=== PATIENT | male | born 1965 | race Caucasian/White ===

== ENCOUNTER 2017-12-02 03:46 | Inpatient (IN) | payer BC, OTHER ==
--- NOTE | 2017-12-02 04:07 | ED ---
General Adult HPI - General Stated complaint: Leg pain Time Seen by Provider: 12/02/17 04:07 - History of Present Illness Initial comments: A 52-year-old male with no significant past medical history who presents to the emergency department today via EMS for evaluation of possible syncope. Patient notes that he drank a fifth of alcohol this evening, and he is not 100% sure what happened. His nephew other reports that they were getting ready to go to bed and he suddenly was unresponsive, collapsed in the bed and was limp. She reports that it about a minute before she could get him to respond. At which time she called 911. She does note that for the past 2-3 weeks he has noticed some pre-profound swelling of his left lower extremity, he's noted that from his foot all the way to his thigh have become swollen. He is also noted a firm nodule at the back of his left thigh and some bruising. He's been told by other people that this is probably about blood clot but he has not gotten this evaluated. He is quite distressed about it as he is usually pre-physically active and this swelling and discomfort in his leg is limiting his physical activity. He also states he' s been having intermittent chest pain though he is not good at describing the pain. He reports been going on for a short period of time. Patient is not an everyday drinker or smoker. He does report that when he drinks he does tend to binge drink. He also reports that when he drinks he does smoke cigarettes. Denies any other past medical history, he doesn't take any medications. - Related Data Home Medications Medication Instructions Recorded Confirmed No Known Home Medications 12/02/17 12/02/17 Allergies Allergy/AdvReac Type Severity Reaction Status Date / Time nitroglycerin Allergy Rapid Verified 12/02/17 04:13 [From Nitrostat] Heart Rate Review of Systems ROS Statement: Those systems with pertinent positive or pertinent negative responses have been documented in the HPI. ROS Other: All systems not noted in ROS Statement are negative. Past Medical History Past Medical History: No Reported History History of Any Multi-Drug Resistant Organisms: None Reported Past Surgical History: Orthopedic Surgery Additional Past Surgical History / Comment(s): eye surgery Past Psychological History: Anxiety Smoking Status: Former smoker Past Alcohol Use History: Occasional Past Drug Use History: None Reported General Exam - General Exam Comments Initial Comments: GENERAL: Patient is well-developed and well-nourished. Patient is nontoxic and well- hydrated and is in no distress. Is intoxicated HENT: Normocephalic, Atraumatic. Neck is soft and supple. No significant lymphadenopathy is noted. Oropharynx is clear. Moist mucous membranes. Neck has full range of motion without eliciting any pain. EYES: The sclera were anicteric and conjunctiva were pink and moist. Extraocular movements were intact and pupils were equal round and reactive to light. Eyelids were unremarkable. PULMONARY: Unlabored respirations. Good breath sounds bilaterally. No audible rales rhonchi or wheezing was noted. CARDIOVASCULAR: Tachycardic, regular ABDOMEN: Soft and nontender with normal bowel sounds. SKIN: Apparent bruising the left posterior thigh NEUROLOGIC: Patient is alert and oriented x3. Cranial nerves II through XII are grossly intact. Motor and sensory are also intact. Normal speech, volume and content. Symmetrical smile. MUSCULOSKELETAL: Left lower extremity with 2+ pitting edema to the knee, palpable cord in the popliteal fossa LYMPHATICS: No significant lymphadenopathy is noted PSYCHIATRIC: Normal psychiatric evaluation. Limitations: no limitations Course Vital Signs 12/02/17 12/02/17 12/02/17 04:09 04:14 04:55 Temperature 98.0 F Pulse Rate 104 H 100 Pulse Rate [ 104 H Hand Assembler ] Respiratory 18 17 Rate Blood Pressure 147/92 150/86 O2 Sat by Pulse 96 97 Oximetry 12/02/17 05:29 Temperature Pulse Rate 103 H Pulse Rate [ Hand Assembler ] Respiratory 18 Rate Blood Pressure 148/84 O2 Sat by Pulse 99 Oximetry EKG Findings - EKG Comments: EKG Findings:: EKG obtained at 3:56 AM, rate 107, rhythm sinus tachycardia, normal axis, normal intervals, IN 140, QRS 92, QTc 448, there is no obvious ST elevations or depressions, no evidence of acute ischemia or infarction. Medical Decision Making - Medical Decision Making The patient was seen and evaluated, history was obtained from EMS, the patient and his at bedside Patient's presenting complaint was possible syncope while intoxicated however on physical exam is very concerning the patient likely has a large DVT in the left leg and with tachycardia and syncope tonight I have a high suspicion for pulmonary embolism. Labs and Imaging were ordered Computed tomography scan reveals an acute pulmonary embolism, high-dose heparin was ordered 10 significant mother bedside were updated Patient care was discussed with Dr. Humphrey, considering the patient's new diagnosis of pulmonary embolism with syncope with no evidence of right heart strain and no elevated troponin I do feel he warrants admission to the hospital for heparin and further monitoring. In addition I will order venous Doppler to assess the clot burden in his left lower extremity. His are in agreement with this. Admission orders were placed. - Lab Data Result diagrams: 12/02/17 04:05 12/02/17 04:05 Lab Results 12/02/17 12/02/17 12/02/17 Range/Units 04:05 04:05 04:05 WBC 6.4 (3.8-10.6) k/uL RBC 4.35 (4.30-5.90) m/uL Hgb 13.9 (13.0-17.5) gm/dL Hct 40.9 (39.0-53.0) % MCV 94.0 (80.0-100.0) fL MCH 31.9 (25.0-35.0) pg MCHC 34.0 (31.0-37.0) g/dL RDW 13.6 (11.5-15.5) % Plt Count 322 (150-450) k/uL Neutrophils % 58 % Lymphocytes % 30 % Monocytes % 8 % Eosinophils % 2 % Basophils % 0 % Neutrophils # 3.7 (1.3-7.7) k/uL Lymphocytes # 1.9 (1.0-4.8) k/uL Monocytes # 0.5 (0-1.0) k/uL Eosinophils # 0.1 (0-0.7) k/uL Basophils # 0.0 (0-0.2) k/uL PT (9.0-12.0) sec INR (<1.2) APTT (22.0-30.0) sec Sodium 147 H (137-145) mmol/L Potassium 4.0 (3.5-5.1) mmol/L Chloride 110 H (98-107) mmol/L Carbon Dioxide 23 (22-30) mmol/L Anion Gap 14 mmol/L BUN 15 (9-20) mg/dL Creatinine 0.90 (0.66-1.25) mg/dL Est GFR (CKD-EPI)AfAm >90 (>60 ml/min/1.73 sqM) Est GFR (CKD-EPI)NonAf >90 (>60 ml/min/1.73 sqM) Glucose 95 (74-99) mg/dL Calcium 8.2 L (8.4-10.2) mg/dL Magnesium 2.0 (1.6-2.3) mg/dL Total Bilirubin 0.2 (0.2-1.3) mg/dL AST 30 (17-59) U/L ALT 27 (21-72) U/L Alkaline Phosphatase 75 (38-126) U/L Total Creatine Kinase 108 (55-170) U/L CK-MB (CK-2) 0.4 (0.0-2.4) ng/mL CK-MB (CK-2) Rel Index 0.4 Troponin I <0.012 (0.000-0.034) ng/mL Total Protein 7.1 (6.3-8.2) g/dL Albumin 3.6 (3.5-5.0) g/dL 12/02/17 Range/Units 04:05 WBC (3.8-10.6) k/uL RBC (4.30-5.90) m/uL Hgb (13.0-17.5) gm/dL Hct (39.0-53.0) % MCV (80.0-100.0) fL MCH (25.0-35.0) pg MCHC (31.0-37.0) g/dL RDW (11.5-15.5) % Plt Count (150-450) k/uL Neutrophils % % Lymphocytes % % Monocytes % % Eosinophils % % Basophils % % Neutrophils # (1.3-7.7) k/uL Lymphocytes # (1.0-4.8) k/uL Monocytes # (0-1.0) k/uL Eosinophils # (0-0.7) k/uL Basophils # (0-0.2) k/uL PT 9.8 (9.0-12.0) sec INR 1.0 (<1.2) APTT 24.6 (22.0-30.0) sec Sodium (137-145) mmol/L Potassium (3.5-5.1) mmol/L Chloride (98-107) mmol/L Carbon Dioxide (22-30) mmol/L Anion Gap mmol/L BUN (9-20) mg/dL Creatinine (0.66-1.25) mg/dL Est GFR (CKD-EPI)AfAm (>60 ml/min/1.73 sqM) Est GFR (CKD-EPI)NonAf (>60 ml/min/1.73 sqM) Glucose (74-99) mg/dL Calcium (8.4-10.2) mg/dL Magnesium (1.6-2.3) mg/dL Total Bilirubin (0.2-1.3) mg/dL AST (17-59) U/L ALT (21-72) U/L Alkaline Phosphatase (38-126) U/L Total Creatine Kinase (55-170) U/L CK-MB (CK-2) (0.0-2.4) ng/mL CK-MB (CK-2) Rel Index Troponin I (0.000-0.034) ng/mL Total Protein (6.3-8.2) g/dL Albumin (3.5-5.0) g/dL Disposition Clinical Impression: Pulmonary embolism, Syncope, Alcohol intoxication, Edema of right lower extremity Disposition: ADMITTED IP TO THIS HOSP Referrals: Miriam Pino DO [Primary Care Provider] - 1-2 days
[2017-12-02] MEDS ORDERED: SODIUM CHLORIDE 0.9% 1,000 ML IV STA (04:32)
[2017-12-02 04:42] LABS: Basophils % (A) 0 %; Eosinophils # (A) 0.1 k/uL (0-0.7); Eosinophils % (A) 2 %; HCT 40.9 % (39.0-53.0); HGB 13.9 gm/dL (13.0-17.5); Lymphocytes # (A) 1.9 k/uL (1.0-4.8); Lymphocytes % (A) 30 %; MCH 31.9 pg (25.0-35.0); Mean Platelet Volume 6.6; Monocytes # (A) 0.5 k/uL (0-1.0); Monocytes % (A) 8 %; Neutrophils # (A) 3.7 k/uL (1.3-7.7); Neutrophils % (A) 58 %; Platelet Count 322 k/uL (150-450); RBC 4.35 m/uL (4.30-5.90); RDW 13.6 % (11.5-15.5); WBC 6.4 k/uL (3.8-10.6)
[2017-12-02 04:53] LABS: Partial Thromboplastin Time 24.6 sec (22.0-30.0); Prothrombin Time 9.8 sec (9.0-12.0)
[2017-12-02 04:59] LABS: ALT 27 U/L (21-72); AST 30 U/L (17-59); Albumin 3.6 g/dL (3.5-5.0); Alkaline Phosphatase 75 U/L (38-126); Anion Gap 14 mmol/L; Blood Urea Nitrogen 15 mg/dL (9-20); Calcium 8.2 mg/dL (8.4-10.2); Carbon Dioxide 23 mmol/L (22-30); Chloride 110 mmol/L (98-107); Glucose 95 mg/dL (74-99); Sodium 147 mmol/L (137-145); Total Bilirubin 0.2 mg/dL (0.2-1.3); Total Protein 7.1 g/dL (6.3-8.2)
[2017-12-02 05:01] LABS: Creatine Kinase 108 U/L (55-170)
[2017-12-02 05:14] LABS: Creatine Kinase MB 0.4 ng/mL (0.0-2.4); Troponin I <0.012 ng/mL (0.000-0.034)
--- NOTE | 2017-12-02 05:28 | CT ---
EXAM: CT Angiography Chest With Intravenous Contrast CLINICAL HISTORY: ITS.REASON CT Reason: Pain TECHNIQUE: Axial computed tomographic angiography images of the chest with intravenous contrast using pulmonary embolism protocol. CTDI is 3.0+57. 2+5.5 mGy and DLP is 212.2 mGy-cm. This CT exam was performed using one or more of the following dose reduction techniques: automated exposure control, adjustment of the mA and/or kV according to patient size, and/or use of iterative reconstruction technique. MIP reconstructed images were created and reviewed. COMPARISON: No relevant prior studies available. FINDINGS: Pulmonary arteries: Filling defects within multiple right lower lobe pulmonary artery proximal segmental branches compatible with pulmonary embolus. No evidence of right heart strain. Aorta: No acute findings. No thoracic aortic aneurysm. Lungs: Unremarkable. No mass. No consolidation. Pleural space: Unremarkable. No significant effusion. No pneumothorax. Heart: Unremarkable. No cardiomegaly. No significant pericardial effusion. No evidence of RV dysfunction. Bones/joints: No acute fracture. No dislocation. Soft tissues: Unremarkable. Lymph nodes: Unremarkable. No enlarged lymph nodes. IMPRESSION: Filling defects within multiple right lower lobe pulmonary artery proximal segmental branches compatible with pulmonary embolus. No evidence of right heart strain. Critical Value [employer] 12/02/17 05:32 Call Doctor Regarding Pulmonary Embolism, called Dr. Hill on 12/02 05:36 (-04:00)
[2017-12-02] MEDS ORDERED: HEPARIN SODIUM,PORCINE 5,000 UNIT/ML 1 ML VIAL IV ONE (05:34)
[2017-12-02] MEDS ORDERED: HEPARIN SODIUM,PORCINE 5,000 UNIT/ML 1 ML VIAL IV PRN (05:34)
[2017-12-02] MEDS ORDERED: NALOXONE 0.4 MG/ML 1 ML VIAL IV PRN (05:38)
[2017-12-02] MEDS: HEPARIN SOD,PORK IN 0.45% NACL 25,000 UNIT in 0.45% NACL 1 500ML.BAG IV SCH ×2 (05:44→19:52)
[2017-12-02] MEDS ORDERED: LORazepam 2 MG/ML INJ IV PRN ×3 (05:59→16:02)
[2017-12-02] MEDS: 1: MVI, ADULT NO.4 WITH VIT K 10 ML, THIAMINE 100 MG, FOLIC ACID 1 MG in SODIUM CHLORIDE IV SCH ×8 (06:12→06:58)
[2017-12-02 06:43] LABS: Appearance,Urine Clear (Clear); Bilirubin,Urine Negative (Negative); Blood,Urine Negative (Negative); Color,Urine Yellow; Glucose,Urine (UA) Negative (Negative); Ketones,Urine Negative (Negative); Leukocyte Esterase,Urine Negative (Negative); Nitrite,Urine Negative (Negative); PH, Urine 5.5 (5.0-8.0); Protein,Urine Trace (Negative); Specific Gravity,Urine 1.038 (1.001-1.035); Urobilinogen,Urine <2.0 mg/dL (<2.0)
[2017-12-02 07:42] VITALS: BMI 25.1
--- NOTE | 2017-12-02 09:27 | US ---
EXAMINATION TYPE: US venous doppler duplex LE DATE OF EXAM: 12/02/2017 8:37 AM COMPARISON: NONE CLINICAL HISTORY: edema, PE. SIDE PERFORMED: Bilateral TECHNIQUE: The lower extremity deep venous system is examined utilizing real time linear array sonog christelle with graded compression, doppler sonography and color-flow sonography. VESSELS IMAGED: External Iliac Vein (EIV) Common Femoral Vein Deep Femoral Vein Greater Saphenous Vein * Femoral Vein Popliteal Vein Small Saphenous Vein * Proximal Calf Veins (* superficial vessels) Grayscale, color doppler, spectral doppler imaging performed of the deep veins of the lower extremiti es. Right Leg: Negative for DVT Left Leg: Appears positive for DVT from EIV through proximal calf veins. Preliminary results given to Aranza TOMLIN at 8:53 am. There is lack of compressibility, color flow, no spectral waveforms noted throughout the deep veins o f left lower extremity. IMPRESSION: Deep venous thrombosis within the left lower extremity extending from the popliteal ve in centrally through the external iliac vein
--- NOTE | 2017-12-02 16:04 | P.HPIM ---
History of Present Illness H&P Date: 12/02/17 Chief Complaint: pulmonary embolism This is a 52-year-old male patient of Dr. Pino. Patient states that he drank a fifth of alcohol last evening when his nephew reported that he was getting ready for bed and became unresponsive, patient collapsed in the bed and was limp. 911 was called. Patient does not report any significant medical history. Patient does report that he usually does drinks nightly and sometimes can drink s 1/5 of liquor a night. Patient does report that the past to 3 weeks he has noticed some profound's swelling in his left lower extremity. CTA of the chest completed showing filling defects within multiple right lower lobe pulmonary artery, proximal segmental branches compatible with pulmonary embolism. No evidence of heart strain. Venous Doppler of lower extremities are positive for DVT within the left lower extremity from the popliteal vein centrally through the External iliac vein. EKG completed showing sinus tachycardia. Patient does state that he is worried about getting any narcotics due to having a bad reaction to Dilaudid in the past. Patient is unsure if he has ever gotten Ativan and his reaction to it would like to clarify with his . Patient was started on high intensity heparin gtt. patient also receiving MVI fluids. At this time patient denies chest pain or shortness breath. Denies nausea vomiting or diarrhea. Patient denies any urinary burning or frequency. Review of Systems Please refer to HPI otherwise unremarkable Past Medical History Past Medical History: No Reported History History of Any Multi-Drug Resistant Organisms: None Reported Past Surgical History: Orthopedic Surgery Additional Past Surgical History / Comment(s): eye surgery Past Psychological History: Anxiety Smoking Status: Former smoker Past Alcohol Use History: Occasional Past Drug Use History: None Reported Medications and Allergies Home Medications Medication Instructions Recorded Confirmed Type No Known Home Medications 12/02/17 12/02/17 History Allergies Allergy/AdvReac Type Severity Reaction Status Date / Time nitroglycerin Allergy Rapid Verified 12/02/17 09:31 [From Nitrostat] Heart Rate Physical Exam Vitals: Vital Signs Temp Pulse Pulse Resp BP BP Pulse Ox 12/02/17 11:32 92 16 148/86 99 12/02/17 11:21 16 12/02/17 08:00 95 16 154/92 98 12/02/17 06:27 97.4 F L 12/02/17 05:29 103 H 18 148/84 99 12/02/17 04:55 100 17 150/86 97 12/02/17 04:14 104 H 12/02/17 04:09 98.0 F 104 H 18 147/92 96 Intake and Output 12/01/17 12/02/17 12/02/17 22:59 06:59 14:59 Other: # Voids 0 Weight 79.379 kg 79.379 kg Head normocephalic Neck supple Lungs clear to auscultation bilaterally no wheezing or crackles Heart regular rate and rhythm S1-S2, no rub or gallop Abdomen is soft nontender nondistended positive bowel sounds no hepatosplenomegaly Extremities no edema. Left lower extremity swollen in calf area Neuro alert and orientated to 3 Results CBC & Chem 7: 12/02/17 04:05 12/02/17 04:05 Labs: Abnormal Lab Results - Last 24 Hours (Table) 12/02/17 12/02/17 12/02/17 Range/Units 04:05 06:29 11:20 APTT 68.4 H (22.0-30.0) sec Sodium 147 H (137-145) mmol/L Chloride 110 H (98-107) mmol/L Calcium 8.2 L (8.4-10.2) mg/dL Ur Specific [place] 1.038 H (1.001-1.035) Urine Protein Trace H (Negative) Assessment and Plan Assessment: 1. Pulmonary embolism. CTA of the chest completed showing filling defects within multiple right lower lobe pulmonary artery proximal segmental branches compatible with pulmonary embolism. No evidence of right heart strain. Patient started on high-dose intensity heparin drip. 2. Left lower extremity deep vein thrombosis. Ultrasound venous Doppler completed of bilateral lower extremities show deep vein thrombosis within the left lower extremity extending from the popliteal vein centrally to the external iliac vein. Patient is currently on high intensity heparin drip. 3. EtOH. Patient states he can drink one fifth of liquor per night. Alcohol withdrawal protocol initiated. Patient received Ativan per emergency room and tolerated Ativan administration. Patient stated he had a reaction to Dilaudid in the past. Patient currently on MVI IV fluids. GI prophylaxis protonix Time with Patient: Greater than 30 (Greater than 60% of the total time spent in counseling and coordination of care. I performed an examination of the patient and discussed their management with the Nurse Practitioner. I have reviewed the Nurse Practitioner's notes and agree with the documented findings and plan of care)
[2017-12-02] MEDS: LORazepam 2 MG/ML INJ IV PRN ×2 (19:42→22:36)
[2017-12-03] MEDS: LORazepam 2 MG/ML INJ IV PRN ×5 (04:12→22:17)
[2017-12-03] MEDS: 1: MVI, ADULT NO.4 WITH VIT K 10 ML, THIAMINE 100 MG, FOLIC ACID 1 MG in SODIUM CHLORIDE IV SCH ×12 (04:13→22:18)
[2017-12-03] MEDS: PANTOPRAZOLE 40 MG TABLET PO SCH (06:13)
[2017-12-03 07:50] LABS: ALT 27 U/L (21-72); AST 22 U/L (17-59); Albumin 2.9 g/dL (3.5-5.0); Alkaline Phosphatase 75 U/L (38-126); Anion Gap 7 mmol/L; Basophils % (A) 0 %; Blood Urea Nitrogen 9 mg/dL (9-20); Calcium 8.2 mg/dL (8.4-10.2); Carbon Dioxide 25 mmol/L (22-30); Chloride 106 mmol/L (98-107); Eosinophils # (A) 0.1 k/uL (0-0.7); Eosinophils % (A) 2 %; Glucose 75 mg/dL (74-99); HCT 39.8 % (39.0-53.0); HGB 13.1 gm/dL (13.0-17.5); Lymphocytes # (A) 1.3 k/uL (1.0-4.8); Lymphocytes % (A) 28 %; MCV 93.9 fL (80.0-100.0); Mean Platelet Volume 6.9; Monocytes # (A) 0.4 k/uL (0-1.0); Monocytes % (A) 8 %; Neutrophils # (A) 2.7 k/uL (1.3-7.7); Neutrophils % (A) 60 %; Platelet Count 312 k/uL (150-450); Potassium 3.8 mmol/L (3.5-5.1); RBC 4.23 m/uL (4.30-5.90); RDW 13.5 % (11.5-15.5); Sodium 138 mmol/L (137-145); Total Bilirubin 0.4 mg/dL (0.2-1.3); Total Protein 6.1 g/dL (6.3-8.2); WBC 4.5 k/uL (3.8-10.6)
[2017-12-03 11:46] LABS: Glucose,Whole Blood 139 mg/dL (75-99)
--- NOTE | 2017-12-03 12:50 | P.PN ---
Subjective Progress Note Date: 12/03/17 This is a 52-year-old male patient of Dr. Pino. Patient states that he drank a fifth of alcohol last evening when his nephew reported that he was getting ready for bed and became unresponsive, patient collapsed in the bed and was limp. 911 was called. Patient does not report any significant medical history. Patient does report that he usually does drinks nightly and sometimes can drink s 1/5 of liquor a night. Patient does report that the past to 3 weeks he has noticed some profound's swelling in his left lower extremity. CTA of the chest completed showing filling defects within multiple right lower lobe pulmonary artery, proximal segmental branches compatible with pulmonary embolism. No evidence of heart strain. Venous Doppler of lower extremities are positive for DVT within the left lower extremity from the popliteal vein centrally through the External iliac vein. EKG completed showing sinus tachycardia. Patient does state that he is worried about getting any narcotics due to having a bad reaction to Dilaudid in the past. Patient is unsure if he has ever gotten Ativan and his reaction to it would like to clarify with his . Patient was started on high intensity heparin gtt. patient also receiving MVI fluids. At this time patient denies chest pain or shortness breath. Denies nausea vomiting or diarrhea. Patient denies any urinary burning or frequency. On 12/03/2017 patient is currently alert and oriented 3. Patient has been on heparin drip with a therapeutic PTT. Dr. Mcduffie following for new onset DVT and pulmonary embolism. CT of abdomen ordered per Dr. Mcduffie. Patient has been getting Ativan per the [facility] protocol for alcohol withdrawal. At this time patient denies chest pain or shortness of breath. Denies nausea vomiting or diarrhea. Denies any urinary burning or frequency. Objective - Vital Signs Vital signs: Vital Signs Temp 97.1 F L 12/03/17 12:00 Pulse 83 12/03/17 12:00 Resp 16 12/03/17 12:00 BP 143/89 12/03/17 12:00 Pulse Ox 99 12/03/17 12:00 Intake & Output 12/02/17 12/03/17 12/03/17 18:59 06:59 18:59 Intake Total 1011.2 1203.789 Output Total 400 Balance 1011.2 803.789 Weight 79.379 kg 78.5 kg Intake: Intake, IV Titration 1011.2 1203.789 Amount Heparin Sod,Pork in 0.45% 403.789 NaCl 25,000 unit In 0.45 % NaCl 1 500ml.bag @ 18 UNITS/KG/HR 28.57 mls/hr IV .[id number] [facility] Rx#: [id number] Mvi, Adult No.4 with Vit 1011.2 K 10 ml Thiamine 100 mg Folic Acid 1 mg In Sodium Chloride 0.9% 1,000 ml @ 100 mls/hr IV .BY DURATION ANEESH Rx#: [id number] Sodium Chloride 0.9% 1, 800 000 ml @ 100 mls/hr IV . BY DURATION ANEESH Rx#: [id number] Oral 0 Output: Urine 400 Other: Voiding Method Urinal # Voids 0 1 # Bowel Movements 0 - Exam Head normocephalic Neck supple Lungs clear to auscultation bilaterally no wheezing or crackles Heart regular rate and rhythm S1-S2, no rub or gallop Abdomen is soft nontender nondistended positive bowel sounds no hepatosplenomegaly Extremities no edema Neuro alert and orientated to 3 - Labs CBC & Chem 7: 12/03/17 06:56 12/03/17 06:56 Labs: Abnormal Lab Results - Last 24 Hours (Table) 12/03/17 12/03/17 12/03/17 Range/Units 06:56 06:56 06:56 RBC 4.23 L (4.30-5.90) m/uL APTT 53.3 H (22.0-30.0) sec POC Glucose (mg/dL) (75-99) mg/dL Calcium 8.2 L (8.4-10.2) mg/dL Total Protein 6.1 L (6.3-8.2) g/dL Albumin 2.9 L (3.5-5.0) g/dL 12/03/17 Range/Units 11:44 RBC (4.30-5.90) m/uL APTT (22.0-30.0) sec POC Glucose (mg/dL) 139 H (75-99) mg/dL Calcium (8.4-10.2) mg/dL Total Protein (6.3-8.2) g/dL Albumin (3.5-5.0) g/dL Assessment and Plan Assessment: 1. Pulmonary embolism. CTA of the chest completed showing filling defects within multiple right lower lobe pulmonary artery proximal segmental branches compatible with pulmonary embolism. No evidence of right heart strain. Patient started on high-dose intensity heparin drip. Dr. cano has been consulted per hematology. CT of abdomen has been ordered per oncology 2. Left lower extremity deep vein thrombosis. Ultrasound venous Doppler completed of bilateral lower extremities show deep vein thrombosis within the left lower extremity extending from the popliteal vein centrally to the external iliac vein. Patient is currently on high intensity heparin drip. 3. EtOH. Patient states he can drink one fifth of liquor per night. Alcohol withdrawal protocol initiated. Patient received Ativan per emergency room and tolerated Ativan administration. Patient stated he had a reaction to Dilaudid in the past. Patient currently on MVI IV fluids. GI prophylaxis protonix Case management consulted for insurance coverage for anticoagulation upon discharge. I performed an examination of the patient and discussed their management with the Nurse Practitioner. I have reviewed the Nurse Practitioner's notes and agree with the documented findings and plan of care
--- NOTE | 2017-12-03 13:47 | CT ---
EXAMINATION TYPE: CT abdomen wo con DATE OF EXAM: 12/03/2017 COMPARISON: None INDICATION: Left sided abdominal pain. DLP: 447 mGycm, Automated exposure control for dose reduction was used. CONTRAST: 0 mL of Isovue 300. Study performed without Oral Contrast TECHNIQUE: Axial images were obtained from above the diaphragm to the pubic rami in the axial plane a t 5 mm thick sections. Reconstructed images are reviewed on the computer in the coronal plane. FINDINGS: Limited CT sections are obtained the lung bases. The lung bases are clear. CT ABDOMEN: Liver: There is a probable 1.0 cm cyst at the superior right lobe liver near the inferior vena cava m easuring 3 Hounsfield units. Additional smaller hypodensities are noted ligamentum teres within the r ight lobe liver likely additional cysts measuring 0.6 and 0.5 cm in size. Series 3 image 34. Spleen: Normal Pancreas: Normal Adrenal glands: The adrenal glands are normal. Gallbladder: Normal Kidneys: No masses are evident. No hydronephrosis is present. No cysts are present. No renal stone s are evident. Aorta: Vascular calcification is within the aorta. Inferior vena cava: Normal. CT PELVIS: Loops of bowel within the abdomen and pelvis are normal. Study is without oral contrast limiting the bowel evaluation. Appendix: Normal as visualized. Urinary bladder: Portion visualized is normal. IMPRESSIONS: 1. No suspicious acute changes to account for abdominal pain
[2017-12-03 17:28] LABS: Glucose,Whole Blood 134 mg/dL (75-99)
--- NOTE | 2017-12-03 19:31 | P.CONS ---
History of Present Illness - Reason for Consult Consult date: 12/03/17 Unprovoked DVT/PE Requesting physician: Darling Cage - Chief Complaint Left Lower Edema - History of Present Illness This is a 52-year-old male patientwith known history of daily alcohol abuse. Apparently the patient was found by family member unresponsive after drinking a fifth of alcohol, EMS arrived and transported patient to hospital. Patient does not report any significant medical history. He admits to drinking the night he became unresponsive and admits to up to a fifth of liquor nightly. He states he noted swelling in his left lower extremity over the past week. CTA of the chest completed showing filling defects within multiple right lower lobe pulmonary artery, proximal segmental branches compatible with pulmonary embolism. No evidence of heart strain. Venous Doppler of lower extremities are positive for DVT within the left lower extremity from the popliteal vein centrally through the External iliac vein. He was started on a heparin drip. He denies any recent travel, sedentary activity, other medications or illicit drugs. no family history that he is aware of clotting disorders, no personal history of cancer. He is overdue for his colonoscopy, although family states he did have a full physical in March. Review of Systems A 14 point review of systems was assessed and completed and all negative except HPI Past Medical History Past Medical History: No Reported History History of Any Multi-Drug Resistant Organisms: None Reported Past Surgical History: Orthopedic Surgery Additional Past Surgical History / Comment(s): eye surgery Past Psychological History: Anxiety Smoking Status: Former smoker Past Alcohol Use History: Occasional Past Drug Use History: None Reported Medications and Allergies Home Medications Medication Instructions Recorded Confirmed Type No Known Home Medications 12/02/17 12/02/17 History Allergies Allergy/AdvReac Type Severity Reaction Status Date / Time nitroglycerin Allergy Rapid Verified 12/02/17 09:31 [From Nitrostat] Heart Rate Physical Exam Vitals: Vital Signs Temp Pulse Resp BP Pulse Ox 12/03/17 16:00 97.7 F 93 18 134/86 98 12/03/17 12:00 97.1 F L 83 16 143/89 99 12/03/17 08:00 96.7 F L 86 16 140/83 98 12/03/17 04:00 97.4 F L 88 20 158/101 98 12/03/17 00:00 98.0 F 93 19 188/106 99 12/02/17 20:00 97.0 F L 95 20 170/91 98 Intake and Output 12/03/17 12/03/17 12/03/17 06:59 14:59 22:59 Intake Total 800 120 120 Output Total 400 400 Balance 400 -280 120 Intake: Intake, IV Titration 800 Amount Sodium Chloride 0.9% 1, 800 000 ml @ 100 mls/hr IV . BY DURATION [facility] Rx#: [id number] Oral 120 120 Output: Urine 400 400 Other: Voiding Method Urinal # Voids 1 Weight 78.5 kg - Constitutional General appearance: average body habitus, cooperative, no acute distress - EENT Eyes: PERRLA, dentition normal ENT: NA/AT, normal oropharynx - Neck supple, trachea midline Neck: normal ROM - Respiratory Respiratory: bilateral: diminished (bilateral) - Cardiovascular Rhythm: regular Heart sounds: normal: S1, S2 - Gastrointestinal General gastrointestinal: hepatomegaly, normal bowel sounds, soft - Integumentary Integumentary: pale - Neurologic no focal defects - Musculoskeletal Musculoskeletal: generalized weakness, strength equal bilaterally - Psychiatric Psychiatric: A&O x's 3, appropriate affect, intact judgment & insight Results CBC & Chem 7: 12/03/17 06:56 12/03/17 06:56 Labs: Abnormal Lab Results - Last 24 Hours (Table) 12/03/17 12/03/17 12/03/17 Range/Units 06:56 06:56 06:56 RBC 4.23 L (4.30-5.90) m/uL APTT 53.3 H (22.0-30.0) sec POC Glucose (mg/dL) (75-99) mg/dL Calcium 8.2 L (8.4-10.2) mg/dL Total Protein 6.1 L (6.3-8.2) g/dL Albumin 2.9 L (3.5-5.0) g/dL 12/03/17 12/03/17 Range/Units 11:44 17:06 RBC (4.30-5.90) m/uL APTT (22.0-30.0) sec POC Glucose (mg/dL) 139 H 134 H (75-99) mg/dL Calcium (8.4-10.2) mg/dL Total Protein (6.3-8.2) g/dL Albumin (3.5-5.0) g/dL Assessment and Plan Plan: Assessment and Recommendations: 1. Unprovoked DVT and PE: - Currently on Heparin Drip - Plan for lifelong anticoagulation as this was unprovoked extensive clotting - Hypercoaguable work-up as out patient - Long discussion regarding alcohol cessation especially on blood thinners, risk of bleeding discussed and understanding stated. - CT abdomen and Chest without occult malignancy - Recommend patient to follow-up with overdue screening colonoscopy. - Will check coverage for eliquis or xarelto and transition patient to po anticoagulation therapy - A follow-up in hematology office will be made Physician Attestation: I have completed the full history and physical of this patient and agree with above dictation by Shavonne Rossi NP. Dictated as a scribe
[2017-12-03] MEDS: HEPARIN SOD,PORK IN 0.45% NACL 25,000 UNIT in 0.45% NACL 1 500ML.BAG IV SCH (20:07)
[2017-12-04 06:50] LABS: Basophils % (A) 0 %; Eosinophils # (A) 0.2 k/uL (0-0.7); Eosinophils % (A) 4 %; HCT 40.4 % (39.0-53.0); HGB 13.3 gm/dL (13.0-17.5); Lymphocytes # (A) 1.8 k/uL (1.0-4.8); Lymphocytes % (A) 42 %; MCH 31.1 pg (25.0-35.0); MCHC 32.9 g/dL (31.0-37.0); MCV 94.5 fL (80.0-100.0); Mean Platelet Volume 6.8; Monocytes # (A) 0.3 k/uL (0-1.0); Monocytes % (A) 7 %; Neutrophils % (A) 45 %; Platelet Count 298 k/uL (150-450); RBC 4.27 m/uL (4.30-5.90); RDW 13.7 % (11.5-15.5); WBC 4.4 k/uL (3.8-10.6)
[2017-12-04] MEDS: PANTOPRAZOLE 40 MG TABLET PO SCH (06:55)
[2017-12-04 07:06] LABS: ALT 27 U/L (21-72); AST 20 U/L (17-59); Albumin 2.9 g/dL (3.5-5.0); Alkaline Phosphatase 69 U/L (38-126); Anion Gap 5 mmol/L; Blood Urea Nitrogen 7 mg/dL (9-20); Calcium 8.4 mg/dL (8.4-10.2); Carbon Dioxide 27 mmol/L (22-30); Chloride 107 mmol/L (98-107); Glucose 81 mg/dL (74-99); Potassium 4.1 mmol/L (3.5-5.1); Sodium 139 mmol/L (137-145); Total Bilirubin 0.5 mg/dL (0.2-1.3); Total Protein 6.1 g/dL (6.3-8.2)
[2017-12-04] MEDS: HEPARIN SOD,PORK IN 0.45% NACL 25,000 UNIT in 0.45% NACL 1 500ML.BAG IV SCH (08:43)
[2017-12-04] MEDS: 1: MVI, ADULT NO.4 WITH VIT K 10 ML, THIAMINE 100 MG, FOLIC ACID 1 MG in SODIUM CHLORIDE IV SCH ×4 (08:45)
--- NOTE | 2017-12-04 09:43 | P.PN ---
Subjective Progress Note Date: 12/04/17 This is a 52-year-old male patient of Dr. Pino. Patient states that he drank a fifth of alcohol last evening when his nephew reported that he was getting ready for bed and became unresponsive, patient collapsed in the bed and was limp. 911 was called. Patient does not report any significant medical history. Patient does report that he usually does drinks nightly and sometimes can drink s 1/5 of liquor a night. Patient does report that the past to 3 weeks he has noticed some profound's swelling in his left lower extremity. CTA of the chest completed showing filling defects within multiple right lower lobe pulmonary artery, proximal segmental branches compatible with pulmonary embolism. No evidence of heart strain. Venous Doppler of lower extremities are positive for DVT within the left lower extremity from the popliteal vein centrally through the External iliac vein. EKG completed showing sinus tachycardia. Patient does state that he is worried about getting any narcotics due to having a bad reaction to Dilaudid in the past. Patient is unsure if he has ever gotten Ativan and his reaction to it would like to clarify with his . Patient was started on high intensity heparin gtt. patient also receiving MVI fluids. At this time patient denies chest pain or shortness breath. Denies nausea vomiting or diarrhea. Patient denies any urinary burning or frequency. On 12/03/2017 patient is currently alert and oriented 3. Patient has been on heparin drip with a therapeutic PTT. Dr. Mcduffie following for new onset DVT and pulmonary embolism. CT of abdomen ordered per Dr. Mcduffie. Patient has been getting Ativan per the [facility] protocol for alcohol withdrawal. At this time patient denies chest pain or shortness of breath. Denies nausea vomiting or diarrhea. Denies any urinary burning or frequency. Objective - Vital Signs Vital signs: Vital Signs Temp 97.8 F 12/04/17 08:00 Pulse 87 12/04/17 08:00 Resp 16 12/04/17 08:00 BP 137/81 12/04/17 08:00 Pulse Ox 97 12/04/17 08:00 Intake & Output 12/03/17 12/04/17 12/04/17 18:59 06:59 18:59 Intake Total 1751.2 1100 300 Output Total 400 Balance 1351.2 1100 300 Weight 77.7 kg Intake: Intake, IV Titration 1511.2 Amount Heparin Sod,Pork in 0.45% 500 NaCl 25,000 unit In 0.45 % NaCl 1 500ml.bag @ 18 UNITS/KG/HR 28.57 mls/hr IV .[id number] [facility] Rx#: [id number] Mvi, Adult No.4 with Vit 1011.2 K 10 ml Thiamine 100 mg Folic Acid 1 mg In Sodium Chloride 0.9% 1,000 ml @ 100 mls/hr IV .BY DURATION [facility] Rx#: [id number] Oral 240 1100 300 Output: Urine 400 Other: Voiding Method Urinal # Voids 2 - Exam Head normocephalic Neck supple Lungs clear to auscultation bilaterally no wheezing or crackles Heart regular rate and rhythm S1-S2, no rub or gallop Abdomen is soft nontender nondistended positive bowel sounds no hepatosplenomegaly Extremities no edema Neuro alert and orientated to 3 - Labs CBC & Chem 7: 12/04/17 05:52 12/04/17 05:52 Labs: Abnormal Lab Results - Last 24 Hours (Table) 12/03/17 12/03/17 12/04/17 Range/Units 11:44 17:06 05:52 RBC 4.27 L (4.30-5.90) m/uL APTT (22.0-30.0) sec BUN (9-20) mg/dL POC Glucose (mg/dL) 139 H 134 H (75-99) mg/dL Total Protein (6.3-8.2) g/dL Albumin (3.5-5.0) g/dL 12/04/17 12/04/17 Range/Units 05:52 05:52 RBC (4.30-5.90) m/uL APTT 53.4 H (22.0-30.0) sec BUN 7 L (9-20) mg/dL POC Glucose (mg/dL) (75-99) mg/dL Total Protein 6.1 L (6.3-8.2) g/dL Albumin 2.9 L (3.5-5.0) g/dL Assessment and Plan Assessment: 1. Pulmonary embolism. CTA of the chest completed showing filling defects within multiple right lower lobe pulmonary artery proximal segmental branches compatible with pulmonary embolism. No evidence of right heart strain. Patient started on high-dose intensity heparin drip. Dr. cano has been consulted per hematology. CT of abdomen has been ordered per oncology. CT of abdomen showing no suspicious acute changes to account for abdominal pain. Awaiting on case management for insurance coverage for anticoagulation. Per oncology patient will have to have lifelong anticoagulation. Plan for hypercoagulable workup as an outpatient per oncology 2. Left lower extremity deep vein thrombosis. Ultrasound venous Doppler completed of bilateral lower extremities show deep vein thrombosis within the left lower extremity extending from the popliteal vein centrally to the external iliac vein. Patient is currently on high intensity heparin drip. 3. EtOH. Patient states he can drink one fifth of liquor per night. Alcohol withdrawal protocol initiated. Patient received Ativan per emergency room and tolerated Ativan administration. Patient stated he had a reaction to Dilaudid in the past. Patient currently on MVI IV fluids. GI prophylaxis protonix Case management consulted for insurance coverage for anticoagulation upon discharge. I performed an examination of the patient and discussed their management with the Nurse Practitioner. I have reviewed the Nurse Practitioner's notes and agree with the documented findings and plan of care
[2017-12-04] MEDS ORDERED: APIXABAN 5 MG TAB PO ONE (15:15)
[2017-12-04] MEDS: THIAMINE 100 MG TAB PO SCH (16:33)
--- NOTE | 2017-12-04 17:41 | P.PN ---
<Shavonne Rossi - Last Filed: 12/04/17 17:39> Subjective Progress Note Date: 12/04/17 Principal diagnosis: PE/DVT ETOH Patient still fatigued, no increased SOB or pain Objective - Vital Signs Vital signs: Vital Signs Temp 97.9 F 12/04/17 16:00 Pulse 18 L 12/04/17 16:00 Resp 16 12/04/17 16:00 BP 138/86 12/04/17 16:00 Pulse Ox 91 L 12/04/17 16:00 Intake & Output 12/03/17 12/04/17 12/04/17 18:59 06:59 18:59 Intake Total 1751.2 1100 600 Output Total 400 Balance 1351.2 1100 600 Weight 77.7 kg Intake: Intake, IV Titration 1511.2 Amount Heparin Sod,Pork in 0.45% 500 NaCl 25,000 unit In 0.45 % NaCl 1 500ml.bag @ 18 UNITS/KG/HR 28.57 mls/hr IV .[id number] [facility] Rx#: [id number] Mvi, Adult No.4 with Vit 1011.2 K 10 ml Thiamine 100 mg Folic Acid 1 mg In Sodium Chloride 0.9% 1,000 ml @ 100 mls/hr IV .BY DURATION [facility] Rx#: [id number] Oral 240 1100 600 Output: Urine 400 Other: Voiding Method Urinal # Voids 2 - Exam Constitutional General appearance: average body habitus, cooperative, no acute distress - EENT Eyes: PERRLA, dentition normal ENT: NA/AT, normal oropharynx - Neck supple, trachea midline Neck: normal ROM - Respiratory Respiratory: bilateral: diminished (bilateral) - Cardiovascular Rhythm: regular Heart sounds: normal: S1, S2 - Gastrointestinal General gastrointestinal: hepatomegaly, normal bowel sounds, soft - Integumentary Integumentary: pale - Neurologic no focal defects - Musculoskeletal Musculoskeletal: generalized weakness, strength equal bilaterally - Psychiatric Psychiatric: A&O x's 3, appropriate affect, intact judgment & insight - Labs CBC & Chem 7: 12/04/17 05:52 12/04/17 05:52 Labs: Abnormal Lab Results - Last 24 Hours (Table) 12/04/17 12/04/17 12/04/17 Range/Units 05:52 05:52 05:52 RBC 4.27 L (4.30-5.90) m/uL APTT 53.4 H (22.0-30.0) sec BUN 7 L (9-20) mg/dL Total Protein 6.1 L (6.3-8.2) g/dL Albumin 2.9 L (3.5-5.0) g/dL Assessment and Plan Plan: Assessment and Recommendations: 1. Unprovoked DVT and PE: - Currently on Heparin Drip - Plan for lifelong anticoagulation as this was unprovoked extensive clotting - Hypercoaguable work-up as out patient - Long discussion regarding alcohol cessation especially on blood thinners, risk of bleeding discussed and understanding stated. - CT abdomen and Chest without occult malignancy - Recommend patient to follow-up with overdue screening colonoscopy. - Eliquis has been started: He will take 10mg po BID for 7 days, then switch to 5mg po bid lifelong He will be followed closely outpatient as his risk for clotting and or bleeding are significantly high with unprovoked thrombus and daily alcohol abuse. - A follow-up in hematology office will be made <Todd Mcduffie - Last Filed: 12/06/17 13:00> Objective - Vital Signs Vital signs: Vital Signs Temp 97.5 F L 12/05/17 07:53 Pulse 94 12/05/17 07:53 Resp 18 12/05/17 07:53 BP 141/97 12/05/17 07:53 Pulse Ox 98 12/05/17 07:53 Intake & Output 12/05/17 12/06/17 12/06/17 18:59 06:59 18:59 Intake Total 240 Balance 240 Intake: Oral 240 - Labs CBC & Chem 7: 12/05/17 05:45 12/05/17 05:45 Assessment and Plan Plan: PD_1 expression of 40% is less then the threshold of 50% needed for 1st line imunotherapy with PD-1 inhibitor. Thus pt will need chemo 1s, if he desires, and is a candidate for, active treatment
[2017-12-04] MEDS ORDERED: LORazepam 1 MG TAB PO PRN (22:39)
[2017-12-04] MEDS: APIXABAN 5 MG TAB PO SCH (23:57)
[2017-12-05 03:51] VITALS: RESP 18
[2017-12-05 06:41] LABS: ALT 29 U/L (21-72); AST 27 U/L (17-59); Albumin 3.1 g/dL (3.5-5.0); Alkaline Phosphatase 62 U/L (38-126); Anion Gap 6 mmol/L; Blood Urea Nitrogen 7 mg/dL (9-20); Calcium 8.8 mg/dL (8.4-10.2); Carbon Dioxide 25 mmol/L (22-30); Chloride 106 mmol/L (98-107); Glucose 84 mg/dL (74-99); Potassium 3.9 mmol/L (3.5-5.1); Sodium 137 mmol/L (137-145); Total Bilirubin 0.4 mg/dL (0.2-1.3); Total Protein 6.3 g/dL (6.3-8.2)
[2017-12-05 06:42] LABS: Basophils % (A) 0 %; Eosinophils # (A) 0.2 k/uL (0-0.7); Eosinophils % (A) 4 %; HCT 40.9 % (39.0-53.0); HGB 13.7 gm/dL (13.0-17.5); Lymphocytes # (A) 1.7 k/uL (1.0-4.8); Lymphocytes % (A) 38 %; MCH 31.6 pg (25.0-35.0); MCHC 33.6 g/dL (31.0-37.0); MCV 94.1 fL (80.0-100.0); Mean Platelet Volume 6.9; Monocytes # (A) 0.3 k/uL (0-1.0); Monocytes % (A) 7 %; Neutrophils # (A) 2.2 k/uL (1.3-7.7); Neutrophils % (A) 49 %; Platelet Count 323 k/uL (150-450); RBC 4.35 m/uL (4.30-5.90); RDW 13.7 % (11.5-15.5); WBC 4.5 k/uL (3.8-10.6)
[2017-12-05] MEDS: PANTOPRAZOLE 40 MG TABLET PO SCH (06:46)
[2017-12-05] MEDS: APIXABAN 5 MG TAB PO SCH (07:47)
[2017-12-05] MEDS: THIAMINE 100 MG TAB PO SCH (07:48)
[2017-12-05 07:53] VITALS: BP 141/97; PULSE 94; TEMP 97.5
[2017-12-05] MEDS ORDERED: MULTIVITAMINS, THERA 1 EACH TAB PO SCH (12:00)
--- NOTE | 2017-12-05 12:09 | P.PN ---
Subjective Progress Note Date: 12/05/17 Principal diagnosis: PE/DVT ETOH Patient still fatigued, no increased SOB or pain Explained plan for follow-up and anticoagulation therapy at discharge. Risks and benefits. Objective - Vital Signs Vital signs: Vital Signs Temp 97.5 F L 12/05/17 07:53 Pulse 94 12/05/17 07:53 Resp 18 12/05/17 07:53 BP 141/97 12/05/17 07:53 Pulse Ox 98 12/05/17 07:53 Intake & Output 12/04/17 12/05/17 12/05/17 18:59 06:59 18:59 Intake Total 600 1090 Balance 600 1090 Weight 77.1 kg Intake: Oral 600 1090 Other: Voiding Method Urinal # Voids 1 - Exam Constitutional General appearance: average body habitus, cooperative, no acute distress - EENT Eyes: PERRLA, dentition normal ENT: NA/AT, normal oropharynx - Neck supple, trachea midline Neck: normal ROM - Respiratory Respiratory: bilateral: diminished (bilateral) - Cardiovascular Rhythm: regular Heart sounds: normal: S1, S2 - Gastrointestinal General gastrointestinal: hepatomegaly, normal bowel sounds, soft - Integumentary Integumentary: pale - Neurologic no focal defects - Musculoskeletal Musculoskeletal: generalized weakness, strength equal bilaterally - Psychiatric Psychiatric: A&O x's 3, appropriate affect, intact judgment & insight - Labs CBC & Chem 7: 12/05/17 05:45 12/05/17 05:45 Labs: Abnormal Lab Results - Last 24 Hours (Table) 12/05/17 Range/Units 05:45 BUN 7 L (9-20) mg/dL Albumin 3.1 L (3.5-5.0) g/dL Assessment and Plan Plan: Assessment and Recommendations: 1. Unprovoked DVT and PE: - Currently on Heparin Drip - Plan for lifelong anticoagulation as this was unprovoked extensive clotting - Hypercoaguable work-up as out patient - Long discussion regarding alcohol cessation especially on blood thinners, risk of bleeding discussed and understanding stated. - CT abdomen and Chest without occult malignancy - Recommend patient to follow-up with overdue screening colonoscopy. - Eliquis has been started: He will take 10mg po BID for 7 days, then switch to 5mg po bid lifelong He will be followed closely outpatient as his risk for clotting and or bleeding are significantly high with unprovoked thrombus and daily alcohol abuse. - A follow-up in hematology office will be made Hematology Plan for DISPO: 1. Eliquis 10mg po BID through 12/10/17 (Rx added to discharge), then 5mg PO BID there after 2. ETOH Cessation imperative on blood thinner, patient verbally states understanding 3. Close monitoring as outpatient with patients high risk social history. First follow-up on 12/10/17 *- CBC and New RX 5mg BID (As well as re-education at this appointment after evaluation) * - Prescription for Hypercoagulable work-up will be provided to patient today, he will be instructed on obtaining blood draw at out patient lab after discharge , he is aware these results may take 1-2 weeks to result. - Appt with Shavonne Rossi NP on 12/10/17 @2040 ([place]) - Appt with Dr. Todd Mcduffie on 12/31/17 @ 8780 ([place]) 4. Patient to follow-up with GI regarding Preventative Care Appointments for Colonoscopy after 6 months of Anticoagulation Therapy, Unless concerning signs or symptoms prior. Thank you for allowing us to participate in the care of this patient, we will follow him closely as outpatient Shavonne Rossi NP
--- NOTE | 2017-12-05 13:24 | P.DS ---
Providers Date of admission: 12/02/17 05:44 Expected date of discharge: 12/05/17 Attending physician: Gerber Humphrey Consults: 12/02/17 14:07 Consult Physician Routine Consulting Provider: Todd Mcduffie Consult Reason/Comments: PE and DVT-new Do you want consulting provider notified?: Yes Primary care physician: Miriam Pino [facility] Course: Discharge diagnosis 1. Pulmonary embolism. 2. Left lower extremity deep vein thrombosis. 3. EtOH dependence with withdrawal. Patient states he can drink one fifth of liquor per night. Continue multivitamin and thiamine. Patient has been educated to not drink any alcohol Hospital course This is a 52-year-old male patient of Dr. Pino. Patient states that he drank a fifth of alcohol last evening when his nephew reported that he was getting ready for bed and became unresponsive, patient collapsed in the bed and was limp. 911 was called. Patient does not report any significant medical history. Patient does report that he usually does drinks nightly and sometimes can drink s 1/5 of liquor a night. Patient does report that the past to 3 weeks he has noticed some profound's swelling in his left lower extremity. CTA of the chest completed showing filling defects within multiple right lower lobe pulmonary artery, proximal segmental branches compatible with pulmonary embolism. No evidence of heart strain. Venous Doppler of lower extremities are positive for DVT within the left lower extremity from the popliteal vein centrally through the External iliac vein. EKG completed showing sinus tachycardia. Patient does state that he is worried about getting any narcotics due to having a bad reaction to Dilaudid in the past. Patient is unsure if he has ever gotten Ativan and his reaction to it would like to clarify with his . Patient was started on high intensity heparin gtt. patient also receiving MVI fluids. At this time patient denies chest pain or shortness breath. Denies nausea vomiting or diarrhea. Patient denies any urinary burning or frequency. On 12/03/2017 patient is currently alert and oriented 3. Patient has been on heparin drip with a therapeutic PTT. Dr. Mcduffie following for new onset DVT and pulmonary embolism. CT of abdomen ordered per Dr. Mcduffie. Patient has been getting Ativan per the [facility] protocol for alcohol withdrawal. At this time patient denies chest pain or shortness of breath. Denies nausea vomiting or diarrhea. Denies any urinary burning or frequency. Patient's symptoms have improved. He was treated for both of PE and DVT. Initially started on IV heparin and has been switched over to request. Patient will be given a coupon for one-month supply of Eliquis. This was already applied to the PRESCRIPTION in the [facility] pharmacy. Patient was started on the Eliquis during his hospitalization. He'll be following up with Dr. Mcduffie and Dr. Pino in the office. He is waiting for insurance authorization in regards to coverage on the Eliquis. It is recommended that patient and PCP obtain the insurance authorization information before the 30 day Eliquis is completed. Patient has been informed with this information. He is medically stable for discharge. Please refer to chart for any further details oncology is recommending lifelong anticoagulation. I performed an examination of the patient and discussed their management with the physician Color Maker. I have reviewed the Physician Color Maker's notes and agree with the documented findings and plan of care Patient Condition at Discharge: Stable Plan - Discharge Summary New Discharge Prescriptions: New Apixaban [Eliquis] 10 mg PO BID 5 Days #20 tab Multivitamins, Thera [Multivitamin (formulary)] 1 each PO DAILY@1200 #30 tab Thiamine [Vitamin B-1] 100 mg PO BID@1200,1700 #60 tab Discharge Medication List Apixaban [Eliquis] 10 mg PO BID 5 Days #20 tab 12/05/17 [Rx] Multivitamins, Thera [Multivitamin (formulary)] 1 each PO DAILY@1200 #30 tab 10/15 [Rx] Thiamine [Vitamin B-1] 100 mg PO BID@1200,1700 #60 tab 12/05/17 [Rx] Follow up Appointment(s)/Referral(s): Todd Mcduffie MD [STAFF PHYSICIAN] - 12/31/17 2:15 pm Shavonne Rossi ANPBC [Nurse Practitioner] - 12/10/17 2:45 pm Miriam Pino DO [Primary Care Provider] - 12/08/17 11:30 am (Friday with Digna ) Patricio Ingram MD [STAFF PHYSICIAN] - As Needed (THIS IS NOT AN APPOINMENT DELETE OR DISREGARD) Patient Instructions/Handouts: Pulmonary Embolism (DC), Syncope (DC), Safe Use of Anticoagulants (DC) Activity/Diet/Wound Care/Special Instructions: 30 day free coupon for Eliquis applied to pts starter pack. Prior authorization was initiated, it is unknown if pt has coverage for this medication at this point, pt needs to follow up with Dr Mcduffie before he runs out of current Eliquis for further anti coagulation needs. Discharge Disposition: HOME SELF-CARE
== END 2017-12-05 13:43 | disposition home or self-care (01) | DRG 299 ==
LOC: EC 03:46 → 6SEL 05:44
PROVIDERS: ADMIT Internal Medicine; ATTEND Internal Medicine
DX: I82.432 Acute embolism and thrombosis of left popliteal vein (principal); I26.99 Other pulmonary embolism without acute cor pulmonale; F10.239 Alcohol dependence with withdrawal, unspecified; I82.422 Acute embolism and thrombosis of left iliac vein; F10.229 Alcohol dependence with intoxication, unspecified; F41.9 Anxiety disorder, unspecified; Z71.41 Alcohol abuse counseling and surveillance of alcoholic; Z87.891 Personal history of nicotine dependence; Z88.8 Allergy status to other drugs, medicaments and biological substances
CPT/HCPCS: 36415; 71275; 74150; 80053; 81003; 82550; 82553; 83735; 84484; 85025; 85610; 85730; 93005; 93970; 96361; 96365; 96376; 99285

== ENCOUNTER → 2017-12-05 | Outpatient (CLI) | payer OTHER ==
[2017-12-05 20:03] LABS: Cardiolipin IgA Antibody 3.1 U/mL
[2017-12-05 20:04] LABS: Cardiolipin Ab IgG Interp NEGATIVE (NEGATIVE); Cardiolipin Ab IgM Interp NEGATIVE (NEGATIVE); Cardiolipin IgM Antibody 3.8 U/mL
[2017-12-08 13:49] LABS: Protein S Antigen 164 % (50 - 140)
[2017-12-08 13:50] LABS: APTT 49 Sec(s) (<43); APTT 1:1 Mix 42 Sec(s) (<43); DRVVT 1:1 Mix 52 Sec(s) (<44); DRVVT Confirmation Negative (Negative); Dilute Russell Viper Venom 79 Sec(s) (<44)
[2017-12-09 11:10] LABS: Protein C (Activity) 89 % (71-138)
[2017-12-09 11:40] LABS: Anti-Thrombin III Activity 127 % (79-109)
== END | disposition home or self-care (01) ==
LOC: LABWHC1 14:17
PROVIDERS: ATTEND Nurse Practitioner Adult Health
DX: I26.99 Other pulmonary embolism without acute cor pulmonale (principal); I82.409 Acute embolism and thrombosis of unspecified deep veins of unspecified lower extremity
CPT/HCPCS: 36415; 81240; 81241; 85300; 85303; 85305; 85613; 85730; 85732; 86146; 86147

== ENCOUNTER → 2018-05-21 | Outpatient (CLI) | payer OTHER ==
[2018-05-21 16:14] LABS: Prothrombin Time 10.4 sec (9.0-12.0)
== END | disposition home or self-care (01) ==
LOC: LABWHC1 15:15
PROVIDERS: ATTEND Physician Assistant
DX: I82.409 Acute embolism and thrombosis of unspecified deep veins of unspecified lower extremity (principal); I26.99 Other pulmonary embolism without acute cor pulmonale
CPT/HCPCS: 36415; 85610

== ENCOUNTER 2018-06-10 22:37 | Inpatient (IN) | payer OTHER ==
[2018-06-10 22:43] LABS: Glucose,Whole Blood 95 mg/dL (75-99)
[2018-06-11] MEDS ORDERED: SODIUM CHLORIDE 0.9% 1,000 ML IV STA (00:21)
[2018-06-11] MEDS ORDERED: LORazepam 2 MG/ML INJ IV STA (00:22)
[2018-06-11] MEDS ORDERED: MORPHINE SULFATE 2 MG/ML SYRINGE IVP STA (00:22)
--- NOTE | 2018-06-11 00:55 | ED ---
Dizziness HPI - General Source: patient Mode of arrival: EMS Limitations: no limitations <Radha Mcdonough - Last Filed: 06/11/18 03:21> <Digna Hill - Last Filed: 06/11/18 06:37> - General Chief Complaint: Dizziness Stated Complaint: vomiting blood Time Seen by Provider: 06/10/18 23:04 - History of Present Illness Initial Comments: 53-year-old male patient presents to the emergency department today for multiple complaints. Patient states that this morning he started to vomit. States he has several episodes of vomiting and had onset of dizziness. Patient states he has dizziness at rest, states the room is spinning and he feels like his equilibrium is off. Patient is also reporting upper abdominal pain and tenderness. Denies any fevers or chills with this. States he does have headache. Denies any chest pain or shortness of breath. Denies any weakness to his extremities. Denies any recent head injury. Does admit to being a daily drinker. States he has not had alcohol today. Denies any street drug use. Patient does take Coumadin for recent right lower extremity DVT, he is unsure if he has taking the appropriate dose at this time. Patient denies any recent rash, diarrhea, constipation, back pain, numbness, tingling, dizziness, weakness, hematuria, dysuria, urinary urgency, urinary frequency, headache, visual changes, or any other complaints. (Radha Mcdonough) I was available for consultation in the emergency department. The history and physical exam were done by the midlevel provider. I was consulted for this patient's care. I reviewed the case with the midlevel provider and based on their presentation of the patient, I agree with the assessment, medical decision making and plan of care as documented. (Digna Hill) - Related Data Home Medications Medication Instructions Recorded Confirmed Warfarin [Coumadin] 10 mg PO HS@1800 06/10/18 06/10/18 Allergies Allergy/AdvReac Type Severity Reaction Status Date / Time hydromorphone [From Dilaudid] AdvReac Confusion Verified 06/10/18 22:54 nitroglycerin AdvReac Rapid Verified 06/10/18 22:54 [From Nitrostat] Heart Rate Review of Systems ROS Other: All systems not noted in ROS Statement are negative. <Radha Mcdonough - Last Filed: 06/11/18 03:21> ROS Other: All systems not noted in ROS Statement are negative. <SergioDigna P - Last Filed: 06/11/18 06:37> ROS Statement: Those systems with pertinent positive or pertinent negative responses have been documented in the HPI. Past Medical History Past Medical History: No Reported History Additional Past Medical History / Comment(s): blood clot in the leg History of Any Multi-Drug Resistant Organisms: None Reported Past Surgical History: Orthopedic Surgery Additional Past Surgical History / Comment(s): eye surgery Past Psychological History: Anxiety Smoking Status: Current every day smoker Past Alcohol Use History: Occasional Past Drug Use History: None Reported <Radha Mcdonough M - Last Filed: 06/11/18 03:21> General Exam Limitations: no limitations General appearance: alert, in no apparent distress, other (Physical well- developed, well-nourished adult male patient in mild distress. Vital signs upon presentation are temperature 98.5F, pulse 81, respirations 18, blood pressure 180/122, pulse ox 100% on room air.) Eye exam: Present: normal appearance, PERRL, EOMI. Absent: scleral icterus, conjunctival injection, nystagmus, periorbital swelling ENT exam: Present: normal exam, normal oropharynx, mucous membranes moist Respiratory exam: Present: normal lung sounds bilaterally. Absent: respiratory distress, wheezes, rales, rhonchi, stridor Cardiovascular Exam: Present: regular rate, normal rhythm, normal heart sounds. Absent: systolic murmur, diastolic murmur, rubs, gallop, clicks GI/Abdominal exam: Present: soft, tenderness (Upper abdominal tenderness), normal bowel sounds. Absent: distended, guarding, rebound, rigid Neurological exam: Present: alert, oriented X3, CN II-XII intact, other (Str ength in all 4 extremities are 5/5. Patient does have postural tremor.) Psychiatric exam: Present: normal affect, normal mood Skin exam: Present: warm, dry, intact, normal color. Absent: rash <Radha Mcdonough M - Last Filed: 06/11/18 03:21> Course Vital Signs 06/10/18 06/11/18 06/11/18 22:39 02:12 03:00 Temperature 98.5 F Pulse Rate 81 93 101 H Pulse Rate [ Pulse Oximetery ] Respiratory 18 Rate Blood Pressure 180/122 173/109 162/95 Blood Pressure [Left Arm] O2 Sat by Pulse 100 96 96 Oximetry 06/11/18 06/11/18 04:42 05:23 Temperature Pulse Rate 98 Pulse Rate [ 90 Pulse Oximetery ] Respiratory 20 17 Rate Blood Pressure 148/93 Blood Pressure 171/102 [Left Arm] O2 Sat by Pulse 97 97 Oximetry EKG Findings - EKG Comments: EKG Findings:: EKG obtained at 04 16 shows sinus rhythm with PACs. Ventricular rate is 84, FL interval 144, QRS duration 94, QT 400, QTC 472. No evidence of ST elevation or depression. <Radha Mcdonough - Last Filed: 06/11/18 03:21> Medical Decision Making - Lab Data Result diagrams: 06/10/18 23:42 06/10/18 23:42 - Radiology Data Radiology results: report reviewed, image reviewed <Radha Mcdonough - Last Filed: 06/11/18 03:21> - Lab Data Result diagrams: 06/10/18 23:42 06/10/18 23:42 <Digna Hill - Last Filed: 06/11/18 06:37> - Medical Decision Making 53-year-old male patient presents to the emergency department today with multiple complaints including vomiting, dizziness, and abdominal pain. Physical examination did reveal upper abdominal tenderness. The logic exam is intact with no focal deficits. Patient did have postural tremor noted and did admit to using alcohol and a daily basis. States he does not drink any alcohol today. Labs reviewed and did reveal an elevated INR at 8.4, patient takes Coumadin for history of DVT with pulmonary embolism. Patient does admit to not having his PT/INR checked at regular intervals. Patient was given IV fluids, Ativan, and Antivert here in the emergency department. Upon reevaluation he has not shown much improvement in symptoms. We'll admit for acute alcohol withdrawal and coagulopathy. Patient will be admitted to Dr. Humphrey who covers for Dr. Cardozo . Patient is agreeable with plan. (Radha Mcdonough) Consult. I discussed patient care with Dr. Humphrey who accepts the admission for possible alcohol withdrawal gentleman with poor medical compliance and elevated INR. (Digna Hill - Lab Data Lab Results 06/10/18 06/10/18 06/10/18 Range/Units 22:41 23:42 23:42 WBC 2.4 L (3.8-10.6) k/uL RBC 4.48 (4.30-5.90) m/uL Hgb 14.4 (13.0-17.5) gm/dL Hct 43.0 (39.0-53.0) % MCV 96.1 (80.0-100.0) fL MCH 32.2 (25.0-35.0) pg MCHC 33.5 (31.0-37.0) g/dL RDW 14.4 (11.5-15.5) % Plt Count 102 L (150-450) k/uL Neutrophils % 74 % Lymphocytes % 15 % Monocytes % 8 % Eosinophils % 2 % Basophils % 0 % Neutrophils # 1.8 (1.3-7.7) k/uL Lymphocytes # 0.4 L (1.0-4.8) k/uL Monocytes # 0.2 (0-1.0) k/uL Eosinophils # 0.0 (0-0.7) k/uL Basophils # 0.0 (0-0.2) k/uL PT (9.0-12.0) sec INR (<1.2) APTT (22.0-30.0) sec Sodium 140 (137-145) mmol/L Potassium 4.4 (3.5-5.1) mmol/L Chloride 103 (98-107) mmol/L Carbon Dioxide 21 L (22-30) mmol/L Anion Gap 16 mmol/L BUN 12 (9-20) mg/dL Creatinine 0.69 (0.66-1.25) mg/dL Est GFR (CKD-EPI)AfAm >90 (>60 ml/min/1.73 sqM) Est GFR (CKD-EPI)NonAf >90 (>60 ml/min/1.73 sqM) Glucose 83 (74-99) mg/dL POC Glucose (mg/dL) 95 (75-99) mg/dL POC Glu Chemistry Lab Instructor ID Cindy Jose Calcium 8.8 (8.4-10.2) mg/dL Total Bilirubin 1.0 (0.2-1.3) mg/dL AST 82 H (17-59) U/L ALT 50 (21-72) U/L Alkaline Phosphatase 68 (38-126) U/L Troponin I (0.000-0.034) ng/mL Total Protein 7.4 (6.3-8.2) g/dL Albumin 4.4 (3.5-5.0) g/dL Amylase 50 (30-110) U/L Lipase 135 (23-300) U/L Urine Color Urine Appearance (Clear) Urine pH (5.0-8.0) Ur Specific [place] (1.001-1.035) Urine Protein (Negative) Urine Glucose (UA) (Negative) Urine Ketones (Negative) Urine Blood (Negative) Urine Nitrite (Negative) Urine Bilirubin (Negative) Urine Urobilinogen (<2.0) mg/dL Ur Leukocyte Esterase (Negative) Urine RBC (0-5) /hpf Urine Mucus (None) /hpf 06/10/18 06/10/18 06/11/18 Range/Units 23:42 23:42 01:34 WBC (3.8-10.6) k/uL RBC (4.30-5.90) m/uL Hgb (13.0-17.5) gm/dL Hct (39.0-53.0) % MCV (80.0-100.0) fL MCH (25.0-35.0) pg MCHC (31.0-37.0) g/dL RDW (11.5-15.5) % Plt Count (150-450) k/uL Neutrophils % % Lymphocytes % % Monocytes % % Eosinophils % % Basophils % % Neutrophils # (1.3-7.7) k/uL Lymphocytes # (1.0-4.8) k/uL Monocytes # (0-1.0) k/uL Eosinophils # (0-0.7) k/uL Basophils # (0-0.2) k/uL PT 80.1 H (9.0-12.0) sec INR 8.2 H* (<1.2) APTT 49.6 H (22.0-30.0) sec Sodium (137-145) mmol/L Potassium (3.5-5.1) mmol/L Chloride (98-107) mmol/L Carbon Dioxide (22-30) mmol/L Anion Gap mmol/L BUN (9-20) mg/dL Creatinine (0.66-1.25) mg/dL Est GFR (CKD-EPI)AfAm (>60 ml/min/1.73 sqM) Est GFR (CKD-EPI)NonAf (>60 ml/min/1.73 sqM) Glucose (74-99) mg/dL POC Glucose (mg/dL) (75-99) mg/dL POC Glu Chemistry Lab Instructor ID Calcium (8.4-10.2) mg/dL Total Bilirubin (0.2-1.3) mg/dL AST (17-59) U/L ALT (21-72) U/L Alkaline Phosphatase (38-126) U/L Troponin I 0.018 (0.000-0.034) ng/mL Total Protein (6.3-8.2) g/dL Albumin (3.5-5.0) g/dL Amylase (30-110) U/L Lipase (23-300) U/L Urine Color Yellow Urine Appearance Clear (Clear) Urine pH 6.5 (5.0-8.0) Ur Specific [place] 1.023 (1.001-1.035) Urine Protein 1+ H (Negative) Urine Glucose (UA) Negative (Negative) Urine Ketones 4+ H (Negative) Urine Blood Small H (Negative) Urine Nitrite Negative (Negative) Urine Bilirubin Negative (Negative) Urine Urobilinogen 3.0 (<2.0) mg/dL Ur Leukocyte Esterase Negative (Negative) Urine RBC 7 H (0-5) /hpf Urine Mucus Rare H (None) /hpf - Radiology Data CT of the brain without contrast was obtained. Report was reviewed in its entirety. Impression by Dr. Jane shows no acute hemorrhage, hydrocephalus, or mass effect. Mild maxillary and ethmoid sinus mucosal disease. (Radha Mcdonough) Disposition Decision to Admit Reason: Admit from EC Decision Date: 06/11/18 Decision Time: 03:25 <Radha Mcdonough - Last Filed: 06/11/18 03:21> <Digna Hill - Last Filed: 06/11/18 06:37> Clinical Impression: Alcohol withdrawal, Coagulopathy Disposition: ADMITTED IP TO THIS [facility] Condition: Serious
[2018-06-11 01:06] LABS: Basophils % (A) 0 %; Eosinophils % (A) 2 %; HGB 14.4 gm/dL (13.0-17.5); Lymphocytes # (A) 0.4 k/uL (1.0-4.8); Lymphocytes % (A) 15 %; MCH 32.2 pg (25.0-35.0); MCHC 33.5 g/dL (31.0-37.0); MCV 96.1 fL (80.0-100.0); Mean Platelet Volume 7.5; Monocytes # (A) 0.2 k/uL (0-1.0); Monocytes % (A) 8 %; Neutrophils # (A) 1.8 k/uL (1.3-7.7); Neutrophils % (A) 74 %; Platelet Count 102 k/uL (150-450); RBC 4.48 m/uL (4.30-5.90); RDW 14.4 % (11.5-15.5); WBC 2.4 k/uL (3.8-10.6)
[2018-06-11 01:17] LABS: Partial Thromboplastin Time 49.6 sec (22.0-30.0); Prothrombin Time 80.1 sec (9.0-12.0)
[2018-06-11 01:20] LABS: INR 8.2 (<1.2)
[2018-06-11 01:22] LABS: ALT 50 U/L (21-72); AST 82 U/L (17-59); Albumin 4.4 g/dL (3.5-5.0); Alkaline Phosphatase 68 U/L (38-126); Amylase 50 U/L (30-110); Anion Gap 16 mmol/L; Blood Urea Nitrogen 12 mg/dL (9-20); Calcium 8.8 mg/dL (8.4-10.2); Carbon Dioxide 21 mmol/L (22-30); Chloride 103 mmol/L (98-107); Glucose 83 mg/dL (74-99); Lipase 135 U/L (23-300); Potassium 4.4 mmol/L (3.5-5.1); Sodium 140 mmol/L (137-145); Total Protein 7.4 g/dL (6.3-8.2)
[2018-06-11 01:51] LABS: Appearance,Urine Clear (Clear); Bilirubin,Urine Negative (Negative); Blood,Urine Small (Negative); Color,Urine Yellow; Glucose,Urine (UA) Negative (Negative); Ketones,Urine 4+ (Negative); Leukocyte Esterase,Urine Negative (Negative); Mucus,Urine Rare /hpf; Nitrite,Urine Negative (Negative); PH, Urine 6.5 (5.0-8.0); Protein,Urine 1+ (Negative); RBC,Urine 7 /hpf (0-5); Specific Gravity,Urine 1.023 (1.001-1.035)
[2018-06-11] MEDS ORDERED: SODIUM CHLORIDE 0.9% 1,000 ML IV ONE (02:12)
[2018-06-11] MEDS ORDERED: PHYTONADIONE ORAL 5 MG/5 ML ORAL.SYRG PO STA (02:12)
--- NOTE | 2018-06-11 02:20 | CT ---
EXAM: CT Head Without Intravenous Contrast CLINICAL HISTORY: ITS.REASON CT Reason: Pain TECHNIQUE: Axial computed tomography images of the head/brain without intravenous contrast. CTDI is 49 mGy and DLP is 1229 mGy-cm. This CT exam was performed using one or more of the following dose reduction techniques: automated exposure control, adjustment of the mA and/or kV according to patient size, and/or use of iterative reconstruction technique. COMPARISON: No relevant prior studies available. FINDINGS: Brain: No hemorrhage, large hypodensity, or mass effect. Ventricles: No hydrocephalus. Bones/joints: Unremarkable. Soft tissues: Unremarkable. Sinuses: Mild ethmoid sinus and maxillary sinus mucosal thickening. Mastoid air cells: Clear. IMPRESSION: No acute hemorrhage, hydrocephalus, or mass effect. Mild maxillary and ethmoid sinus mucosal disease.
[2018-06-11] MEDS ORDERED: MECLIZINE 12.5 MG TAB PO STA (02:28)
[2018-06-11] MEDS ORDERED: THIAMINE 100 MG/ML 2 ML VIAL IM STA (03:18)
[2018-06-11] MEDS ORDERED: NALOXONE 0.4 MG/ML 1 ML VIAL IV PRN (03:18)
[2018-06-11] MEDS ORDERED: LORazepam 2 MG/ML INJ IV PRN ×2 (03:18)
[2018-06-11] MEDS ORDERED: SODIUM CHLORIDE 0.9% 1,000 ML with MVI, ADULT NO.4 WITH VIT K 10 ML, THIAMINE 100 MG, F... IV ONE ×4 (03:20)
[2018-06-11] MEDS ORDERED: ONDANSETRON 4 MG/2 ML VIAL IVP PRN (03:21)
[2018-06-11] MEDS: LORazepam 2 MG/ML INJ IV PRN ×2 (04:00→13:00)
[2018-06-11 05:38] VITALS: BMI 25.4
[2018-06-11 12:31] LABS: Basophils % (A) 0 %; Eosinophils # (A) 0.1 k/uL (0-0.7); Eosinophils % (A) 3 %; HCT 43.2 % (39.0-53.0); HGB 14.5 gm/dL (13.0-17.5); Lymphocytes # (A) 1.1 k/uL (1.0-4.8); Lymphocytes % (A) 32 %; MCH 32.5 pg (25.0-35.0); MCHC 33.6 g/dL (31.0-37.0); MCV 96.9 fL (80.0-100.0); Mean Platelet Volume 7.4; Monocytes # (A) 0.3 k/uL (0-1.0); Monocytes % (A) 8 %; Neutrophils % (A) 56 %; Platelet Count 107 k/uL (150-450); RBC 4.46 m/uL (4.30-5.90); RDW 14.6 % (11.5-15.5); WBC 3.6 k/uL (3.8-10.6)
[2018-06-11 12:59] LABS: ALT 43 U/L (21-72); AST 65 U/L (17-59); Albumin 3.5 g/dL (3.5-5.0); Alkaline Phosphatase 65 U/L (38-126); Anion Gap 7 mmol/L; Blood Urea Nitrogen 10 mg/dL (9-20); Calcium 8.2 mg/dL (8.4-10.2); Carbon Dioxide 25 mmol/L (22-30); Chloride 106 mmol/L (98-107); Glucose 72 mg/dL (74-99); Potassium 3.7 mmol/L (3.5-5.1); Sodium 138 mmol/L (137-145); Total Bilirubin 0.8 mg/dL (0.2-1.3); Total Protein 6.3 g/dL (6.3-8.2)
[2018-06-11 13:04] LABS: Prothrombin Time 55.8 sec (9.0-12.0)
[2018-06-11 13:22] LABS: INR 5.8 (<1.2)
[2018-06-11] MEDS ORDERED: LACTULOSE 20 GM/30 ML CUP PO ONE (13:45)
--- NOTE | 2018-06-11 14:07 | P.HPIM ---
History of Present Illness H&P Date: 06/11/18 Chief Complaint: Vomiting abdominal pain and dizziness This is a 53-year-old male, patient of [facility]. He is a known past medical history of PE and right lower extremity DVT and currently anticoagulated with Coumadin. Also history of daily alcohol use and nicotine dependence. In November patient was hospitalized for PE and right leg DVT he was discharged home with Eliquis. Also at that time oncology had seen him and recommended lifelong anticoagulation. Per patient Eliquis was discontinued due to insurance not covering it and place the patient was then placed on Coumadin. Patient continues to drink alcohol while on the Coumadin. INR is 8.2 on admission. Patient's initially presented to the hospital due to vomiting abdominal pain and dizziness that started yesterday. Patient does report having blood in his vomit. Hemoglobin is stable at 14.5 GI service will be consulted. Lipase is normal. AST 82 down to 65 and ALT is normal. Total bilirubin normal. Computed tomography scan of the brain showed no evidence of hemorrhage. He was started on CIWA protocol for alcohol withdrawal. Patient does admit to a cough. Influenza screening has been ordered ordered chest x-ray and abdominal x-ray. Patient was given vitamin K 10 g by mouth in ER. Patient also reports some blood in the urine as well as of bleeding in his gums. Patient denies any chest pain or shortness of breath. Also reporting constipation and his been about 3 days since his last bowel movement. Denies any burning with urination. Patient did have some elevated blood pressures 180/122. Last blood pressure 133/63. Blood pressures have improved after being placed on CIWA protocol Review of Systems Please refer to HPI otherwise unremarkable Past Medical History Past Medical History: No Reported History Additional Past Medical History / Comment(s): patient states 4 months ago - blood clot in the leg, patient states it traveled to his lung. History of Any Multi-Drug Resistant Organisms: None Reported Past Surgical History: Orthopedic Surgery Additional Past Surgical History / Comment(s): eye surgery Additional Past Anesthesia/Blood Transfusion Reaction / Comment(s): patient states he has never had a blood transfusion Past Psychological History: Anxiety Smoking Status: Current every day smoker Past Alcohol Use History: Daily, Heavy Past Drug Use History: None Reported Medications and Allergies Home Medications Medication Instructions Recorded Confirmed Type Warfarin [Coumadin] 10 mg PO HS@1800 06/10/18 06/10/18 History Allergies Allergy/AdvReac Type Severity Reaction Status Date / Time hydromorphone [From Dilaudid] AdvReac Confusion Verified 06/10/18 22:54 nitroglycerin AdvReac Rapid Verified 06/10/18 22:54 [From Nitrostat] Heart Rate Physical Exam Vitals: Vital Signs Temp Pulse Pulse Resp BP BP Pulse Ox 06/11/18 05:23 90 17 171/102 97 06/11/18 04:42 98 20 148/93 97 06/11/18 03:00 101 H 162/95 96 06/11/18 02:12 93 173/109 96 06/10/18 22:39 98.5 F 81 18 180/122 100 Intake and Output 06/10/18 06/11/18 06/11/18 22:59 06:59 14:59 Intake Total 2500 230 Output Total 250 400 Balance 2250 -170 Intake: Amount of Fluid Infused ( 2500 ml) Oral 230 Output: Urine 250 400 Other: Weight 81.647 kg 80.6 kg Head normocephalic Neck supple Lungs clear to auscultation bilaterally no wheezing or crackles Heart regular rate and rhythm S1-S2, no rub or gallop Abdomen is soft epigastric tenderness nondistended positive bowel sounds no hepatosplenomegaly Extremities no edema Neuro alert and orientated to 3 Results CBC & Chem 7: 06/11/18 12:17 06/11/18 12:17 Labs: Abnormal Lab Results - Last 24 Hours (Table) 06/10/18 06/10/18 06/10/18 Range/Units 23:42 23:42 23:42 WBC 2.4 L (3.8-10.6) k/uL Plt Count 102 L (150-450) k/uL Lymphocytes # 0.4 L (1.0-4.8) k/uL PT 80.1 H (9.0-12.0) sec INR 8.2 H* (<1.2) APTT 49.6 H (22.0-30.0) sec Carbon Dioxide 21 L (22-30) mmol/L Glucose (74-99) mg/dL Calcium (8.4-10.2) mg/dL AST 82 H (17-59) U/L Urine Protein (Negative) Urine Ketones (Negative) Urine Blood (Negative) Urine RBC (0-5) /hpf Urine Mucus (None) /hpf 06/11/18 06/11/18 06/11/18 Range/Units 01:34 11:40 12:17 WBC 3.6 L (3.8-10.6) k/uL Plt Count 107 L (150-450) k/uL Lymphocytes # (1.0-4.8) k/uL PT 55.8 H (9.0-12.0) sec INR 5.8 H* (<1.2) APTT (22.0-30.0) sec Carbon Dioxide (22-30) mmol/L Glucose (74-99) mg/dL Calcium (8.4-10.2) mg/dL AST (17-59) U/L Urine Protein 1+ H (Negative) Urine Ketones 4+ H (Negative) Urine Blood Small H (Negative) Urine RBC 7 H (0-5) /hpf Urine Mucus Rare H (None) /hpf 06/11/18 Range/Units 12:17 WBC (3.8-10.6) k/uL Plt Count (150-450) k/uL Lymphocytes # (1.0-4.8) k/uL PT (9.0-12.0) sec INR (<1.2) APTT (22.0-30.0) sec Carbon Dioxide (22-30) mmol/L Glucose 72 L (74-99) mg/dL Calcium 8.2 L (8.4-10.2) mg/dL AST 65 H (17-59) U/L Urine Protein (Negative) Urine Ketones (Negative) Urine Blood (Negative) Urine RBC (0-5) /hpf Urine Mucus (None) /hpf Thrombosis Risk Factor Assmnt - Choose All That Apply Any of the Below Risk Factors Present?: Yes Each Factor Represents 1 point: Age 41-60 years, Medical pt on bed rest Other Risk Factors: No Other congenital or acquired thrombophilia - If yes, enter type in comment: No Thrombosis Risk Factor Assessment Total Risk Factor Score: 2 Thrombosis Risk Factor Assessment Level: Low Risk Assessment and Plan Assessment: 1. Coagulopathy: INR 8.2 patient received vitamin K 10 mg by mouth INR is now 5.8. Patient has had no further episodes of hematemesis. Reports that the blood in his urine has resolved as well as the gum bleeding. Computed tomography scan of the brain was negative for any hemorrhage. 2. Hematemesis with epigastric abdominal pain. Consult GI service. Hemoglobin remained stable. Lipase normal. AST 65. Add IV Protonix 40 mg daily. Continue with Zofran as needed 3. Constipation check abdominal x-ray will give Colace and lactulose 4. Dizziness improved with IV fluids. Likely related to patient's vomiting 5. Alcohol withdrawal: Continue CIWA protocol with Ativan thiamine and multivitamin. Consult social work for alcohol abuse programs. Patient has been educated thoroughly that he needs to quit alcohol use 6. History of PE and right lower extremity DVT. Patient will require lifelong anticoagulation per hematology as stated per their note form his previous hospitalization in November. Patient has failed Coumadin treatment due to coagulopathy and daily alcohol use. 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 Hypertension likely due to alcohol withdrawal. Blood pressures are showing improvement with the Ativan. Continue to monitor. 9. Nicotine dependence and nicotine patch Time with Patient: Greater than 30 (Greater than 50% of the total time spent in counseling and coordination of care.I performed an examination of the patient and discussed their management with the physician [employer] Mason. I have reviewed the Physician Con[employer] Mason's notes and agree with the documented findings and plan of care)
--- NOTE | 2018-06-11 16:13 | XR ---
EXAMINATION TYPE: XR abdomen acute w cxr DATE OF EXAM: 06/11/2018 COMPARISON: NONE HISTORY: Cough and abdominal pain, constipation TECHNIQUE: Supine, upright views of the abdomen and frontal chest are obtained on 4 images. FINDINGS: Chest x-ray shows no acute cardiopulmonary disease. Patient is rotated. There are cardiac leads. There is no evidence for pneumoperitoneum. The bowel gas pattern is unremarkable as there is air throughout nondilated small and large bowel. No sizeable air fluid levels. No mass effects are seen. No unusual calcifications. IMPRESSION: Unremarkable study
[2018-06-11] MEDS: THIAMINE 100 MG TAB PO SCH (18:20)
[2018-06-11] MEDS: DOCUSATE 100 MG CAP PO SCH ×2 (18:20→19:50)
[2018-06-11] MEDS: PANTOPRAZOLE 40 MG/10 ML VIAL IVP SCH (18:20)
[2018-06-11] MEDS: NICOTINE 21MG/24HR PATCH TRANSDERM SCH (18:20)
[2018-06-11] MEDS: MULTIVITAMINS, THERA 1 EACH TAB PO SCH (20:00)
[2018-06-12 06:23] LABS: Basophils % (A) 0 %; Eosinophils # (A) 0.1 k/uL (0-0.7); Eosinophils % (A) 2 %; HCT 46.8 % (39.0-53.0); HGB 15.5 gm/dL (13.0-17.5); Lymphocytes # (A) 1.4 k/uL (1.0-4.8); Lymphocytes % (A) 33 %; MCH 31.7 pg (25.0-35.0); Mean Platelet Volume 7.3; Monocytes # (A) 0.3 k/uL (0-1.0); Monocytes % (A) 7 %; Neutrophils # (A) 2.4 k/uL (1.3-7.7); Neutrophils % (A) 57 %; Platelet Count 106 k/uL (150-450); RBC 4.88 m/uL (4.30-5.90); RDW 14.5 % (11.5-15.5); WBC 4.2 k/uL (3.8-10.6)
[2018-06-12 06:27] LABS: INR 1.6 (<1.2); Prothrombin Time 15.9 sec (9.0-12.0)
[2018-06-12 06:31] LABS: ALT 53 U/L (21-72); AST 75 U/L (17-59); Albumin 3.8 g/dL (3.5-5.0); Alkaline Phosphatase 64 U/L (38-126); Anion Gap 6 mmol/L; Blood Urea Nitrogen 8 mg/dL (9-20); Calcium 8.6 mg/dL (8.4-10.2); Carbon Dioxide 27 mmol/L (22-30); Chloride 104 mmol/L (98-107); Glucose 82 mg/dL (74-99); Potassium 3.7 mmol/L (3.5-5.1); Sodium 137 mmol/L (137-145); Total Protein 6.8 g/dL (6.3-8.2)
[2018-06-12] MEDS: PANTOPRAZOLE 40 MG/10 ML VIAL IVP SCH (08:38)
[2018-06-12] MEDS: DOCUSATE 100 MG CAP PO SCH ×2 (08:38→20:16)
[2018-06-12] MEDS: NICOTINE 21MG/24HR PATCH TRANSDERM SCH (08:39)
--- NOTE | 2018-06-12 11:28 | P.PN ---
Subjective Progress Note Date: 06/12/18 This is a 53-year-old male, patient of [facility]. He is a known past medical history of PE and right lower extremity DVT and currently anticoagulated with Coumadin. Also history of daily alcohol use and nicotine dependence. In November patient was hospitalized for PE and right leg DVT he was discharged home with Eliquis. Also at that time oncology had seen him and recommended lifelong anticoagulation. Per patient Eliquis was discontinued due to insurance not covering it and place the patient was then placed on Coumadin. Patient continues to drink alcohol while on the Coumadin. INR is 8.2 on admission. Patient's initially presented to the hospital due to vomiting abdominal pain and dizziness that started yesterday. Patient does report having blood in his vomit. Hemoglobin is stable at 14.5 GI service will be consulted. Lipase is normal. AST 82 down to 65 and ALT is normal. Total bilirubin normal. Computed tomography scan of the brain showed no evidence of hemorrhage. He was started on CIWA protocol for alcohol withdrawal. Patient does admit to a cough. Influenza screening has been ordered ordered chest x-ray and abdominal x-ray. Patient was given vitamin K 10 g by mouth in ER. Patient also reports some blood in the urine as well as of bleeding in his gums. Patient denies any chest pain or shortness of breath. Also reporting constipation and his been about 3 days since his last bowel movement. Denies any burning with urination. Patient did have some elevated blood pressures 180/122. Last blood pressure 133/63. Blood pressures have improved after being placed on CIWA protocol 06/12/2018 patient has had no further vomiting or hematemesis. No further complaint bleeding or blood in the urine. Hemoglobin is stable at 15.5 INR is 1.6. Acute abdominal series was negative. Influenza screening negative. Patient now reporting that it his cough is likely his smoker's cough. Still no bowel movement but he has been on a clear liquid diet. Per pillowcase maker Eliquis was denied by the insurance company. manager commercial has ordered an appeal. We will await further information regarding the anticoagulation. Patient denies any chest pain or shortness of breath. Denies any burning with urination. Patient to be evaluated by GI service today. Blood pressure 158/103 heart rate 104. We'll have blood pressure repeated and give patient Ativan Objective - Vital Signs Vital signs: Vital Signs Temp 96.9 F L 06/12/18 08:35 Pulse 104 H 06/12/18 08:35 Resp 18 06/12/18 08:35 BP 158/103 06/12/18 08:35 Pulse Ox 99 06/12/18 08:35 Intake & Output 06/11/18 06/12/18 06/12/18 18:59 06:59 18:59 Intake Total 1210 1043 Output Total 1050 600 Balance 160 -600 1043 Weight 80 kg Intake: Intake, IV Titration 700 Amount Sodium Chloride 0.9% 1, 700 000 ml @ 100 mls/hr IV . Q10H7M ONE with Mvi, Adult No.4 with Vit K 10 ml with Thiamine 100 mg with Folic Acid 1 mg Rx#: [id number] Oral 510 1043 Output: Urine 1050 600 Other: Voiding Method Urinal - Exam Head normocephalic Neck supple Lungs clear to auscultation bilaterally no wheezing or crackles Heart regular rate and rhythm S1-S2, no rub or gallop Abdomen is soft nontender nondistended positive bowel sounds no hepatosplenomegaly Extremities no edema Neuro alert and orientated to 3. Tremor noted in hands bilaterally - Labs CBC & Chem 7: 06/12/18 05:44 06/12/18 05:44 Labs: Abnormal Lab Results - Last 24 Hours (Table) 06/11/18 06/11/18 06/11/18 Range/Units 11:40 12:17 12:17 WBC 3.6 L (3.8-10.6) k/uL Plt Count 107 L (150-450) k/uL PT 55.8 H (9.0-12.0) sec INR 5.8 H* (<1.2) BUN (9-20) mg/dL Glucose 72 L (74-99) mg/dL Calcium 8.2 L (8.4-10.2) mg/dL AST 65 H (17-59) U/L 06/12/18 06/12/18 06/12/18 Range/Units 05:44 05:44 05:44 WBC (3.8-10.6) k/uL Plt Count 106 L (150-450) k/uL PT 15.9 H (9.0-12.0) sec INR 1.6 H (<1.2) BUN 8 L (9-20) mg/dL Glucose (74-99) mg/dL Calcium (8.4-10.2) mg/dL AST 75 H (17-59) U/L Assessment and Plan Assessment: 1. Coagulopathy: INR 8.2 patient received vitamin K 10 mg by mouth. Patient has had no further episodes of hematemesis. Reports that the blood in his urine has resolved as well as the gum bleeding. Computed tomography scan of the brain was negative for any hemorrhage. INR is now 1.6. 2. Hematemesis with epigastric abdominal pain. Consult GI service. Hemoglobin remained stable. Lipase normal. AST 65. Add IV Protonix 40 mg daily. Continue with Zofran as needed. Symptoms have resolved. 3. Constipation: Patient was given Colace and lactulose. No bowel movement. Abdominal x-ray was negative. We'll monitor. 4. Dizziness improved with IV fluids. Likely related to patient's vomiting 5. Alcohol withdrawal: Continue CIWA protocol with Ativan thiamine and multivitamin. Consult social work for alcohol abuse programs. Patient has been educated thoroughly that he needs to quit alcohol use 6. History of PE and right lower extremity DVT. Patient will require lifelong anticoagulation per hematology as stated per their note form his previous hospitalization in November. Patient has failed Coumadin treatment due to coagulopathy and daily alcohol use. manager commercial is checking into Eliquis coverage due to the fact that patient failed Coumadin treatment and he is going to require lifelong anticoagulation for his PE and DVT. Insurance denied Eliquis coverage. 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 8. Hypertension likely due to alcohol withdrawal. Blood pressure 158/103 with heart rate of 104 this morning again likely related to with trauma. Continue the Ativan as needed. Will have nursing staff repeat blood pressure. 9. Nicotine dependence and nicotine patch I performed an examination of the patient and discussed their management with the physician Medical Biller. I have reviewed the Physician Medical Biller's notes and agree with the documented findings and plan of care
--- NOTE | 2018-06-12 11:50 | P.CONS ---
History of Present Illness - Reason for Consult Consult date: 06/12/18 Hematemesis Requesting physician: Gerber Humphrey - Chief Complaint Hematemesis - History of Present Illness 53-year-old gentleman history of DVT/PE 4 months ago maintained on warfarin, 3-4 x weekly daily alcohol consumption presents with intractable nausea vomiting hematemesis epigastric pain. PAtient vomited 8 times yesterday the last 2 were bloody. INR greater 5.8 receive vitamin K presently 1.6. Last alcohol drink was 2 days ago. No further episodes of hematemesis. Denies melena or hematochezia. No history of GI bleeds or peptic ulcer disease. No history of EGD/colonoscopy. Admission hemoglobin 14.5 presently 15.5. Platelet 106. BUN creatinine within normal limits. Liver enzymes within normal limits exception of AST mildly elevated between 65-75. Abdominal xrays negative. Review of Systems Constitutional: Denies fever, chills, sweats, weight gain, or loss. HEENT: Negative for migraines, blurred vision or loss, earaches, drainage, tinnitus, oral mucosal lesions, dysphagia, or odynophagia. Cardiac: Negative for chest pain, arrhythmias, or palpitation. Respiratory: Negative for shortness of breath, hemoptysis, cough, or sputum production. Gastrointestinal: See HPI for pertinent findings. Genitourinary: Negative for hematuria, urgency, frequency, polyuria, dysuria, or penile discharge. Musculoskeletal: Negative for muscle aches, swelling, arthritis, and arthralgias. Neurologic: Negative for stroke or TIA. Endocrine: Negative for thyroid problems. Skin: Negative for rash or itching. Psychiatric: Negative history for depression and anxiety Past Medical History Past Medical History: No Reported History Additional Past Medical History / Comment(s): patient states 4 months ago - blood clot in the leg, patient states it traveled to his lung. History of Any Multi-Drug Resistant Organisms: None Reported Past Surgical History: Orthopedic Surgery Additional Past Surgical History / Comment(s): eye surgery Additional Past Anesthesia/Blood Transfusion Reaction / Comm: patient states he has never had a blood transfusion Past Psychological History: Anxiety Smoking Status: Current every day smoker Past Alcohol Use History: Daily, Heavy Past Drug Use History: None Reported Medications and Allergies Home Medications Medication Instructions Recorded Confirmed Type Warfarin [Coumadin] 10 mg PO HS@1800 06/10/18 06/10/18 History Allergies Allergy/AdvReac Type Severity Reaction Status Date / Time hydromorphone [From Dilaudid] AdvReac Confusion Verified 06/10/18 22:54 nitroglycerin AdvReac Rapid Verified 06/10/18 22:54 [From Nitrostat] Heart Rate Physical Exam Vitals: Vital Signs Temp Pulse Resp BP Pulse Ox 06/12/18 08:35 96.9 F L 104 H 18 158/103 99 06/12/18 04:00 100 18 147/99 98 06/12/18 00:00 95 18 131/83 98 06/11/18 20:00 98.3 F 87 17 134/81 98 06/11/18 16:00 100 143/92 95 06/11/18 12:00 89 133/73 97 Intake and Output 06/11/18 06/12/18 06/12/18 22:59 06:59 14:59 Intake Total 1043 Output Total 450 350 Balance -450 -350 1043 Intake: Oral 1043 Output: Urine 450 350 Other: Voiding Method Urinal Weight 80 kg General appearance: The patient is alert, oriented, in no acute distress. Mild arm tremors. HET: Head is normocephalic and atraumatic. Pupils are equal and reactive. Oropharynx is clear without lesions. Neck: Supple without lymphadenopathy. Trachea midline. Heart: S1 S2. Regular rate and rhythm. Lungs: No crackles or wheezes are heard. Abdomen: Soft, nontender, nondistended with bowel sounds. No peritoneal signs. No palpable organomegaly or masses. Extremities: Normal skin color and turgor. No cyanosis, rash, ulceration, clubbing, or edema. Radial and pedal pulses are 2/4 bilaterally. Neurological: No focal deficits. Strength and sensation are grossly intact. Results CBC & Chem 7: 06/12/18 05:44 06/12/18 05:44 Labs: Abnormal Lab Results - Last 24 Hours (Table) 06/11/18 06/11/18 06/11/18 Range/Units 11:40 12:17 12:17 WBC 3.6 L (3.8-10.6) k/uL Plt Count 107 L (150-450) k/uL PT 55.8 H (9.0-12.0) sec INR 5.8 H* (<1.2) BUN (9-20) mg/dL Glucose 72 L (74-99) mg/dL Calcium 8.2 L (8.4-10.2) mg/dL AST 65 H (17-59) U/L 06/12/18 06/12/18 06/12/18 Range/Units 05:44 05:44 05:44 WBC (3.8-10.6) k/uL Plt Count 106 L (150-450) k/uL PT 15.9 H (9.0-12.0) sec INR 1.6 H (<1.2) BUN 8 L (9-20) mg/dL Glucose (74-99) mg/dL Calcium (8.4-10.2) mg/dL AST 75 H (17-59) U/L Abdominal x-ray: report reviewed (Dr. Cosby) Assessment and Plan (1) Hematemesis Narrative/Plan: 53-year-old male admitted with acute onset of epigastric pain nausea vomiting hematemesis with underlying warfarin-induced coagulopathy possible Jelena-Abraham tear underlying alcohol induced gastropathy possible peptic ulcer disease esophageal varices could not be excluded. Presently hemoglobin is 15.5 upper GI symptoms have abated no further episodes of hematemesis or epigastric pain. Coagulopathy corrected. Current Visit: Yes Status: Acute Code(s): K92.0 - HEMATEMESIS SNOMED Code(s): 7750644 (2) Warfarin-induced coagulopathy Current Visit: Yes Status: Acute Code(s): D68.32 - HEMORRHAGIC DISORD D/T EXTRINSIC CIRCULATING ANTICOAGULANTS; T45.515A - ADVERSE EFFECT OF ANTICOAGULANTS, INITIAL ENCOUNTER SNOMED Code(s): 15515450 (3) EtOH dependence Current Visit: Yes Status: Acute Code(s): F10.20 - ALCOHOL DEPENDENCE, UNCOMPLICATED SNOMED Code(s): 25261371 (4) Alcohol withdrawal Current Visit: Yes Status: Acute Code(s): F10.239 - ALCOHOL DEPENDENCE WITH WITHDRAWAL, UNSPECIFIED SNOMED Code(s): 906812809 (5) History of pulmonary embolism Current Visit: Yes Status: Acute Code(s): Z86.711 - PERSONAL HISTORY OF PULMONARY EMBOLISM SNOMED Code(s): 735156045 (6) H/O deep venous thrombosis Current Visit: Yes Status: Acute Code(s): Z86.718 - PERSONAL HISTORY OF OTHER VENOUS THROMBOSIS AND EMBOLISM SNOMED Code(s): 101053392 Plan: 1. Alcohol absence was advised. EGD today. CIWA protocol. Avoid NSAIDs and aspirin. Diet as tolerated. Protonix 40 mg twice daily. Coumadin on hold. CBC monitoring. The furniture painter has discussed the risks, benefits and alternative therapies for the above-mentioned procedure and for both sedation/analgesia as well as necessary blood product administration, if indicated, as they pertain to this patient. The patient has indicated understanding and acceptance of the risks and procedures discussed. Thank you for this kind referral and the opportunity to participate in the care of your patient. This consultation was discussed with Dr. Cosby. The impression and plan of care have been directed as dictated.
[2018-06-12] MEDS ORDERED: PROPOFOL 10 MG/ML 20 ML VIAL IV ONE (12:51)
[2018-06-12] MEDS ORDERED: LIDOCAINE 1% INJ 10MG/ML (20 ML MDV) ONE (12:51)
--- NOTE | 2018-06-12 13:04 | P.PCN ---
Date of Procedure: 06/12/18 Procedure(s) Performed: BRIEF HISTORY: Patient is a 53-year-old, pleasant, white male, in the hospital with nausea vomiting and emesis for the last 2 days' duration. Hemoglobin stable at 13 g/dL. History of heavy alcoholism. He has history of epigastric discomfort for the last 2 days. He scheduled for an upper endoscopy to evaluate for the source of upper GI bleed. PROCEDURE PERFORMED: Esophagogastroduodenoscopy. PREOPERATIVE DIAGNOSIS: Upper GI bleed. IV sedation per anesthesia. PROCEDURE: After informed consent was obtained, the patient was brought into the endoscopy unit. IV sedation was administered by Anesthesia under continuous monitoring. Initially the Olympus GIF-140 video endoscope was inserted into the mouth. Esophagus intubated without any difficulty. It was gradually advanced into the stomach and duodenum and carefully examined. The bulb and the second part of the duodenum appeared normal. The scope at this time was withdrawn to the stomach, adequately insufflated with air, and upon careful examination, mucosa of the antrum, body, cardia and the fundus appeared normal. The scope was then withdrawn into the esophagus. Small hiatal hernia noted. The GE junction was located at 39 cm from the incisors. There were linear erosions in the distal esophagus consistent with LA grade B reflux esophagitis. The rest of the esophagus appeared normal. There were no esophageal varices seen and the patient tolerated the procedure well. IMPRESSION: 1. Linear erosions in the distal esophagus consistent with LA grade B reflux esophagitis. 2. Small hiatal hernia 3. No evidence of gastric or esophageal. RECOMMENDATIONS: The findings of this examination were discussed with the patient. He'll be continued on Protonix 40 mg daily and follow antireflux measures. Diet and advance as tolerated.
[2018-06-12] MEDS ORDERED: SODIUM CHLORIDE 0.9% 1,000 ML IV ONE (13:06)
[2018-06-12] MEDS: THIAMINE 100 MG TAB PO SCH ×2 (13:53→16:56)
[2018-06-12] MEDS: MULTIVITAMINS, THERA 1 EACH TAB PO SCH (13:53)
[2018-06-12] MEDS: APIXABAN 5 MG TAB PO SCH (16:56)
[2018-06-12] MEDS ORDERED: WARFARIN 7.5 MG TAB PO ONE (18:00)
[2018-06-12] MEDS ORDERED: PANTOPRAZOLE 40 MG/10 ML VIAL IVP SCH (21:00)
[2018-06-13] MEDS: APIXABAN 5 MG TAB PO SCH (05:03)
[2018-06-13 07:27] LABS: Basophils % (A) 0 %; Eosinophils # (A) 0.1 k/uL (0-0.7); Eosinophils % (A) 1 %; HCT 47.2 % (39.0-53.0); HGB 15.3 gm/dL (13.0-17.5); Lymphocytes % (A) 18 %; MCH 31.6 pg (25.0-35.0); MCHC 32.5 g/dL (31.0-37.0); MCV 97.2 fL (80.0-100.0); Mean Platelet Volume 7.6; Monocytes # (A) 0.4 k/uL (0-1.0); Monocytes % (A) 7 %; Neutrophils # (A) 4.2 k/uL (1.3-7.7); Neutrophils % (A) 73 %; Platelet Count 113 k/uL (150-450); RBC 4.86 m/uL (4.30-5.90); RDW 14.4 % (11.5-15.5); WBC 5.7 k/uL (3.8-10.6)
[2018-06-13 07:36] LABS: Prothrombin Time 10.8 sec (9.0-12.0)
[2018-06-13 07:47] LABS: ALT 56 U/L (21-72); AST 64 U/L (17-59); Alkaline Phosphatase 65 U/L (38-126); Anion Gap 7 mmol/L; Blood Urea Nitrogen 13 mg/dL (9-20); Carbon Dioxide 26 mmol/L (22-30); Chloride 105 mmol/L (98-107); Glucose 84 mg/dL (74-99); Sodium 138 mmol/L (137-145); Total Bilirubin 1.1 mg/dL (0.2-1.3); Total Protein 7.1 g/dL (6.3-8.2)
[2018-06-13] MEDS: DOCUSATE 100 MG CAP PO SCH (08:32)
[2018-06-13] MEDS: NICOTINE 21MG/24HR PATCH TRANSDERM SCH (08:32)
[2018-06-13] MEDS ORDERED: PANTOPRAZOLE 40 MG TABLET PO SCH (09:00)
[2018-06-13 09:18] VITALS: RESP 20
[2018-06-13 12:03] VITALS: BP 149/95; PULSE 111; TEMP 99
[2018-06-13] MEDS: THIAMINE 100 MG TAB PO SCH (12:26)
[2018-06-13] MEDS: MULTIVITAMINS, THERA 1 EACH TAB PO SCH (12:26)
--- NOTE | 2018-06-13 13:41 | P.DS ---
Providers Date of admission: 06/11/18 04:48 Expected date of discharge: 06/13/18 Attending physician: Gerber Humphrey Consults: 06/11/18 13:43 Consult Physician Routine Consulting Provider: Leslee Cosby Consult Reason/Comments: vomiting, hematemesis Do you want consulting provider notified?: Yes Primary care physician: [facility] Course: Diagnosis on discharge: 1. Coagulopathy: INR 8.2 patient received vitamin K 10 mg by mouth. Patient has had no further episodes of hematemesis. Reports that the blood in his urine has resolved as well as the gum bleeding. Computed tomography scan of the brain was negative for any hemorrhage. INR is now 1.6. 2. Hematemesis with epigastric abdominal pain. Consult GI service. Hemoglobin remained stable. Lipase normal. AST 65. Add IV Protonix 40 mg daily. Continue with Zofran as needed. Symptoms have resolved. 3. Constipation: Patient was given Colace and lactulose. No bowel movement. Abdominal x-ray was negative. We'll monitor. 4. Dizziness improved with IV fluids. Likely related to patient's vomiting 5. Alcohol withdrawal: Continue CIWA protocol with Ativan thiamine and multivitamin. Consult social work for alcohol abuse programs. Patient has been educated thoroughly that he needs to quit alcohol use 6. History of PE and right lower extremity DVT. Patient will require lifelong anticoagulation per hematology as stated per their note form his previous hospitalization in November. Patient has failed Coumadin treatment due to coagulopathy and daily alcohol use. benefits manager is checking into Eliquis coverage due to the fact that patient failed Coumadin treatment and he is going to require lifelong anticoagulation for his PE and DVT. Insurance denied Eliquis coverage. 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 8. Hypertension likely due to alcohol withdrawal. Blood pressure 158/103 with heart rate of 104 this morning again likely related to with trauma. Continue the Ativan as needed. Will have nursing staff repeat blood pressure. 9. Nicotine dependence and nicotine patch. Hospital course: This is a 53-year-old male, patient of [facility]. He is a known past medical history of PE and right lower extremity DVT and currently anticoagulated with Coumadin. Also history of daily alcohol use and nicotine dependence. In November patient was hospitalized for PE and right leg DVT he was discharged home with Eliquis. Also at that time oncology had seen him and recommended lifelong anticoagulation. Per patient Eliquis was discontinued due to insurance not covering it and place the patient was then placed on Coumadin. Patient continues to drink alcohol while on the Coumadin. INR is 8.2 on admission. Patient's initially presented to the hospital due to vomiting abdominal pain and dizziness that started yesterday. Patient does report having blood in his vomit. Hemoglobin is stable at 14.5 GI service will be consulted. Lipase is normal. AST 82 down to 65 and ALT is normal. Total bilirubin normal. Computed tomography scan of the brain showed no evidence of hemorrhage. He was started on CIWA protocol for alcohol withdrawal. Patient does admit to a cough. Influenza screening has been ordered ordered chest x-ray and abdominal x-ray. Patient was given vitamin K 10 g by mouth in ER. Patient also reports some blood in the urine as well as of bleeding in his gums. Patient denies any chest pain or shortness of breath. Also reporting constipation and his been about 3 days since his last bowel movement. Denies any burning with urination. Patient did have some elevated blood pressures 180/122. Last blood pressure 133/63. Blood pressures have improved after being placed on CIWA protocol 06/12/2018 patient has had no further vomiting or hematemesis. No further complaint bleeding or blood in the urine. Hemoglobin is stable at 15.5 INR is 1.6. Acute abdominal series was negative. Influenza screening negative. Patient now reporting that it his cough is likely his smoker's cough. Still no bowel movement but he has been on a clear liquid diet. Per case hardener Eliquis was denied by the insurance company. benefits manager has ordered an appeal. We will await further information regarding the anticoagulation. Patient denies any chest pain or shortness of breath. Denies any burning with urination. Patient to be evaluated by GI service today. Blood pressure 158/103 heart rate 104. We'll have blood pressure repeated and give patient Ativan On 06/13/2018 patient was seen and examined on the medical floor he is alert and oriented 3 he was started on Eliquis 5 mg twice daily yesterday there is no evidence of bleeding today patient is asymptomatic his hemoglobin is stable at 15.3 case hardener was able to obtain insurance authorization for Eliquis coverage at 0 copay. Patient was counseled in length in regards to abstinence f rom alcohol and quitting smoking . He was discharged home on 06/13/2018 he was given a prescription for Protonix 40 mg once daily a prescription for NicoDerm patches 21 g change daily and a prescription for Eliquis 5 mg by mouth twice daily he was told not to take Coumadin anymore and to follow-up with his primary care physician within one week he seems to understand counseling well. Patient Condition at Discharge: Serious Plan - Discharge Summary Discharge Rx Participant: No New Discharge Prescriptions: New Apixaban [Eliquis] 5 mg PO BID@0600,1800 tab Nicotine 21Mg/24Hr Patch [Habitrol] 1 patch TRANSDERM DAILY patch Pantoprazole [Protonix] 40 mg PO Q12HR tablet. Discontinued Warfarin [Coumadin] 10 mg PO HS@1800 Discharge Medication List Apixaban [Eliquis] 5 mg PO BID@0600,1800 tab 06/13/18 [Rx] Nicotine 21Mg/24Hr Patch [Habitrol] 1 patch TRANSDERM DAILY patch 06/13/18 [Rx] Pantoprazole [Protonix] 40 mg PO Q12HR tablet. 06/13/18 [Rx] Follow up Appointment(s)/Referral(s): Beckie Grijalva MD [STAFF PHYSICIAN] - 06/18/18 1:30 pm () Patient Instructions/Handouts: Alcohol Withdrawal (DC), Elevated INR (DC) Activity/Diet/Wound Care/Special Instructions: pt has been approved for Eliquis coverage-$0/mo copay
--- NOTE | 2018-06-13 17:35 | PN ---
PROGRESS NOTE DATE OF SERVICE: June 13, 2018 Patient is a 53 -year-old white male admitted to the hospital with acute upper gastrointestinal bleed. History of heavy alcohol abuse. Upper endoscopy done yesterday showed evidence of severe reflux esophagitis with linear erosions in the distal esophagus and small hiatal hernia. Patient is on Protonix 40 mg daily. This morning, he is feeling better. No further episodes of bleeding. PHYSICAL EXAMINATION: Appears comfortable, no apparent distress. VITAL SIGNS: Stable. Blood pressure is 132/71, pulse rate 107, temperature 98.3. HEENT: Examination unremarkable. Conjunctivae pink. Sclerae anicteric. Oral cavity no lesions. Neck no JVD or lymph node enlargement. Chest was clear to auscultation. HEART: Regular rate and rhythm. ABDOMEN: Soft. Bowel sounds are positive. No organomegaly. Extremities: No pedal edema. Skin no rashes. NEUROLOGIC: Alert and oriented x3. No focal deficits. LABS: WBC 5.7, hemoglobin 15.3, platelets are 113. Basic metabolic panel is within normal limits. IMPRESSION: 1. Acute upper gastrointestinal bleed, status post EGD yesterday that showed severe reflux esophagitis and small hiatal hernia. Currently on IV Protonix and no further episodes of bleeding. 2. Heavy alcohol abuse. 3. Mild alcohol withdrawal. RECOMMENDATIONS: 1. Advance diet as tolerated. 2. Continue with Protonix 40 mg daily. 3. Abstinence from alcohol. 4. The patient was advised to follow up in office in 2 weeks following discharge from the hospital. MMODL / IJN: [id number] /
== END 2018-06-13 14:15 | disposition home or self-care (01) | DRG 813 ==
LOC: EC 22:37 → 3SCARD 06-11 04:48
PROVIDERS: ADMIT Internal Medicine; ATTEND Internal Medicine
PROC: 0DJ08ZZ Inspection of Upper Intestinal Tract, Via Natural or Artificial Opening Endoscopic (ICD-10-PCS; principal; 2018-06-12 08:45)
DX: D68.32 Hemorrhagic disorder due to extrinsic circulating anticoagulants (principal); K22.11 Ulcer of esophagus with bleeding; F10.239 Alcohol dependence with withdrawal, unspecified; T45.515A Adverse effect of anticoagulants, initial encounter; J41.0 Simple chronic bronchitis; R51 Headache; R31.9 Hematuria, unspecified; K06.8 Other specified disorders of gingiva and edentulous alveolar ridge; K44.9 Diaphragmatic hernia without obstruction or gangrene; K59.00 Constipation, unspecified; I10 Essential (primary) hypertension; K21.0 Gastro-esophageal reflux disease with esophagitis; F41.9 Anxiety disorder, unspecified; F17.200 Nicotine dependence, unspecified, uncomplicated; Z71.6 Tobacco abuse counseling; Z79.01 Long term (current) use of anticoagulants; Z86.718 Personal history of other venous thrombosis and embolism; Z86.711 Personal history of pulmonary embolism; Z88.5 Allergy status to narcotic agent; Z88.8 Allergy status to other drugs, medicaments and biological substances
CPT/HCPCS: 36415; 43235; 70450; 74022; 80053; 81001; 82150; 83690; 84484; 85025; 85610; 85730; 87502; 93005; 96361; 96365; 96372; 96375; 96376; 99285

== ENCOUNTER → 2019-03-15 | Outpatient (CLI) | payer OTHER ==
--- NOTE | 2019-03-15 08:12 | CT ---
EXAMINATION TYPE: CT chest angio for PE DATE OF EXAM: 03/15/2019 COMPARISON: 12/02/2017 HISTORY: Chronic pulmonary embolism CT DLP: 261 mGycm CONTRAST: CT chest with contrast and 3D reconstruction with MIP imaging is performed with IV Contrast, patient injected with 100 mL of Isovue 300. Contrast-enhanced CT of the chest was performed through the course of the pulmonary arteries with milton g and mediastinal window settings submitted. 3D reconstruction with MIP imaging was also performed. PULMONARY ARTERIES: The pulmonary arteries and their major tributaries are patent. I do not see tye dence for sizable filling defect to suggest pulmonary embolic process. LUNGS: The lungs are clear and free of infiltrate. No evidence for atelectasis. No pulmonary nodule or mass is detected. No pleural effusion. MEDIASTINUM: Thoracic aorta is of normal caliber,however, evaluation is limited given timing of the contrast bolus. If there is concern for thoracic aortic pathology consider NELLA. Correlate clinicall y . The heart is not enlarged. No evidence for mediastinal mass. No mediastinal lymph nodes greater than 1cm. HILAR STRUCTURES: No evidence for mass. No hilar lymph nodes greater than 1 cm. UPPER ABDOMEN: No significant abnormality is seen. IMPRESSION: 1. No evidence for Pulmonary embolism at this time.
--- NOTE | 2019-03-15 09:47 | US ---
EXAMINATION TYPE: US venous doppler duplex LE DATE OF EXAM: 03/15/2019 8:24 AM COMPARISON: 12/02/2017 CLINICAL HISTORY: I27.82 chronic PE, I82.5Z9 Deep vein thrombosis. SIDE PERFORMED: Bilateral TECHNIQUE: The lower extremity deep venous system is examined utilizing real time linear array sonog christelle with graded compression, doppler sonography and color-flow sonography. VESSELS IMAGED: External Iliac Vein (EIV) Common Femoral Vein Deep Femoral Vein Greater Saphenous Vein * Femoral Vein Popliteal Vein Small Saphenous Vein * Proximal Calf Veins (* superficial vessels) Grayscale, color doppler, spectral doppler imaging performed of the deep veins of the lower extremiti es. Right Leg: Negative for DVT Left Leg: Positive for DVT, appears more chronic from previous. This is resolved in the external jenna ac vein is now seen in the left femoral vein and popliteal vein with incomplete compression and incom plete flow. IMPRESSION: Chronic deep venous thrombosis, overall improvement in caliber from the prior of 2017, w ithin the left femoral vein and popliteal vein.
== END | disposition home or self-care (01) ==
LOC: RADCTMAIN 07:08
PROVIDERS: ATTEND Internal Medicine Hematology & Oncology
DX: I82.512 Chronic embolism and thrombosis of left femoral vein (principal); I82.532 Chronic embolism and thrombosis of left popliteal vein; I26.99 Other pulmonary embolism without acute cor pulmonale; I27.82 Chronic pulmonary embolism; Z88.8 Allergy status to other drugs, medicaments and biological substances
CPT/HCPCS: 93970; 71275; Q9967

== ENCOUNTER → 2019-09-27 | Outpatient (CLI) | payer OTHER ==
--- NOTE | 2019-09-27 13:12 | US ---
EXAMINATION TYPE: US venous doppler duplex LE LT DATE OF EXAM: 09/27/2019 12:38 PM COMPARISON: 03/15/2019 CLINICAL HISTORY: 54-year-old male I82.5Z9 Chronic embolism and thrombosis. History of DVT left leg, patient currently takes blood thinners SIDE PERFORMED: Left TECHNIQUE: The lower extremity deep venous system is examined utilizing real time linear array sonog christelle with graded compression, doppler sonography and color-flow sonography. FINDINGS: VESSELS IMAGED: External Iliac Vein (EIV) Common Femoral Vein Deep Femoral Vein Greater Saphenous Vein * Femoral Vein Popliteal Vein Small Saphenous Vein * Proximal Calf Veins (* superficial vessels) Left Leg: Thready flow from EIV down through the upper calf veins. Unable to completely compress ves sels. IMPRESSION: Similar nonocclusive chronic DVT throughout the left lower extremity.
== END | disposition home or self-care (01) ==
LOC: RADUSWWP 12:11
PROVIDERS: ATTEND Internal Medicine Hematology & Oncology
DX: I82.502 Chronic embolism and thrombosis of unspecified deep veins of left lower extremity (principal)

== ENCOUNTER 2020-09-02 15:00 | Emergency (ER) | payer OTHER ==
[2020-09-02 15:31] VITALS: RESP 20
--- NOTE | 2020-09-02 16:08 | ED ---
Skin/Abscess/FB HPI - General Chief complaint: Skin/Abscess/Foreign Body Stated complaint: lt leg pain, poss DVT Time Seen by Provider: 09/02/20 15:52 Source: patient, family, RN notes reviewed Mode of arrival: wheelchair Limitations: no limitations - History of Present Illness Initial comments: 55-year-old white male presents to the emergency room, alert and oriented 4 and well-appearing with complaints of left quiñonez pain with swelling and bruising for the past 2 days. Patient states that he was playing around kickboxing and had been drinking quite a bit 2 days ago. patient has history of DVT that became a pulmonary embolism, is on eloquis since 2019 with no complications. Family member at bedside concerned that it is another DVT. Patient denies any nausea vomiting diarrhea shortness of breath or chest pain. Patient states that it hurts when he bears weight but denies any calf pain. MD complaint: other (Hematoma left mid tibia) -: days(s) (2) Location: LLE Severity scale (1-10): 8 Quality: aching Context: other (States was drinking 2 days ago playing around kickboxing, doesn't remember an injury but woke up with swelling) Associated symptoms: denies other symptoms Treatments Prior to Arrival: none - Related Data Previous Rx's Medication Instructions Recorded Apixaban [Eliquis] 5 mg PO BID@0600,1800 tab 06/13/18 Nicotine 21Mg/24Hr Patch [Habitrol] 1 patch TRANSDERM DAILY patch 06/13/18 Pantoprazole [Protonix] 40 mg PO Q12HR tablet. 06/13/18 Allergies Allergy/AdvReac Type Severity Reaction Status Date / Time hydromorphone [From Dilaudid] AdvReac Confusion Verified 09/02/20 15:31 nitroglycerin AdvReac Rapid Verified 09/02/20 15:31 [From Nitrostat] Heart Rate Review of Systems ROS Statement: Those systems with pertinent positive or pertinent negative responses have been documented in the HPI. ROS Other: All systems not noted in ROS Statement are negative. Past Medical History Past Medical History: Deep Vein Thrombosis (DVT), Pulmonary Embolus (PE) Additional Past Medical History / Comment(s): patient states 4 months ago - blood clot in the leg, patient states it traveled to his lung. History of Any Multi-Drug Resistant Organisms: None Reported Past Surgical History: Orthopedic Surgery Additional Past Surgical History / Comment(s): eye surgery Additional Past Anesthesia/Blood Transfusion Reaction / Comment(s): patient states he has never had a blood transfusion Past Psychological History: Anxiety Smoking Status: Current some day smoker Past Alcohol Use History: Daily, Heavy Past Drug Use History: None Reported General Exam Limitations: no limitations General appearance: alert, in no apparent distress Head exam: Present: atraumatic, normocephalic, normal inspection Eye exam: Present: normal appearance, PERRL, EOMI. Absent: scleral icterus, conjunctival injection, periorbital swelling ENT exam: Present: normal exam, mucous membranes moist Neck exam: Present: normal inspection. Absent: tenderness, meningismus, lymphadenopathy Respiratory exam: Present: normal lung sounds bilaterally. Absent: respiratory distress, wheezes, rales, rhonchi, stridor, chest wall tenderness, accessory muscle use, decreased breath sounds Cardiovascular Exam: Present: regular rate, normal rhythm, normal heart sounds. Absent: systolic murmur, diastolic murmur, rubs, gallop, clicks GI/Abdominal exam: Present: soft, normal bowel sounds. Absent: distended, tenderness, guarding, rebound, rigid Rectal exam: Present: deferred Left Lower Leg exam: Present: full ROM, swelling (Hematoma anterior mid tibia), ecchymosis. Absent: abrasion, laceration, deformity, crepitus, dislocation, Homans' sign Ankle exam: Present: normal inspection, full ROM. Absent: tenderness Foot/Toe exam: Present: normal inspection, full ROM. Absent: tenderness Back exam: Present: normal inspection, full ROM. Absent: tenderness, CVA tenderness (R), CVA tenderness (L), muscle spasm, paraspinal tenderness, vertebral tenderness Neurological exam: Present: alert, oriented X3, CN II-XII intact Psychiatric exam: Present: normal affect, normal mood Skin exam: Present: warm, dry, intact, normal color. Absent: rash Course Vital Signs 09/02/20 15:26 Temperature 98.4 F Pulse Rate 115 H Respiratory 20 Rate Blood Pressure 124/82 O2 Sat by Pulse 98 Oximetry Medical Decision Making - Medical Decision Making X-ray negative for fracture of the left lower extremity. Patient is an elevated risk for history of DVT. Patient can relate this to an injury during kickboxing couple days ago after being intoxicated. Patient denying shortness of breath, chest pain or calf tenderness. Vital signs are stable. Patient educated on signs and symptoms associated with DVT in calf pain and swelling differential and not localized. Patient educated that this is a hematoma and superficial and not deep vein. Directed to follow up with primary care doctor in 1 week as needed. Case discussed with Dr. Medina Disposition Clinical Impression: Hematoma Disposition: HOME SELF-CARE Condition: Good Instructions (If sedation given, give patient instructions): Hematoma (ED) Additional Instructions: Follow-up with the primary Doctor in 1 week. Return if signs and symptoms of shortness of breath, chest pain, or circumferential lower extremity swelling and calf tenderness which are signs of deep vein thrombosis. Continue your medications as previously prescribed. Is patient prescribed a controlled substance at d/c from ED?: No Referrals: Beckie Grijalva MD [Primary Care Provider] - 1-2 days Time of Disposition: 17:09
--- NOTE | 2020-09-02 16:56 | XR ---
EXAMINATION TYPE: XR tibia fibula LT DATE OF EXAM: 09/02/2020 COMPARISON: NONE HISTORY: Pain TECHNIQUE: 4 views FINDINGS: The tibia and fibula appear intact. Ankle joint is intact. Knee joint appears intact. There is no sign of knee joint effusion. I see no fracture nor dislocation. IMPRESSION: Negative left tibia and fibula exam.
[2020-09-02 17:25] VITALS: BP 120/82; PULSE 99; TEMP 98.3
== END 2020-09-02 17:25 | disposition home or self-care (01) ==
LOC: EC 15:00
DX: S80.12XA Contusion of left lower leg, initial encounter (principal); Z86.711 Personal history of pulmonary embolism; Z86.718 Personal history of other venous thrombosis and embolism; F17.200 Nicotine dependence, unspecified, uncomplicated; Z88.5 Allergy status to narcotic agent; X58.XXXA Exposure to other specified factors, initial encounter; Y93.89 Activity, other specified
CPT/HCPCS: 99283

== ENCOUNTER → 2020-10-09 | Outpatient (CLI) | payer OTHER ==
--- NOTE | 2020-10-09 12:52 | US ---
EXAMINATION TYPE: US venous doppler duplex LE LT DATE OF EXAM: 10/09/2020 10:48 AM COMPARISON: CLINICAL HISTORY: I82.579 Chronic embolism and thrombosis. Follow up left leg DVT. On blood thinners . Swelling, no redness SIDE PERFORMED: Left TECHNIQUE: The lower extremity deep venous system is examined utilizing real time linear array sonog christelle with graded compression, doppler sonography and color-flow sonography. VESSELS IMAGED: Common Femoral Vein Deep Femoral Vein Greater Saphenous Vein * Femoral Vein Popliteal Vein Proximal Calf Veins (* superficial vessels) Left Leg: Appears POSITIVE for DVT from CFV to Proximal calf veins. Nonoccluding. IMPRESSION: Again appears POSITIVE for nonoccluding DVT from CFV to Proximal calf veins.
== END | disposition home or self-care (01) ==
LOC: RADUSWWP 09:56
PROVIDERS: ATTEND Internal Medicine Hematology & Oncology
DX: I82.512 Chronic embolism and thrombosis of left femoral vein (principal); I82.562 Chronic embolism and thrombosis of left calf muscular vein

== ENCOUNTER 2020-10-30 21:21 | Observation (INO) | payer MEDICARE, OTHER ==
[2020-10-30] MEDS ORDERED: SODIUM CHLORIDE 0.9% 1,000 ML IV STA ×2 (21:33)
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
[2020-10-30 21:45] LABS: Basophils # (A) 0.1 k/uL (0-0.2); Basophils % (A) 1 %; Eosinophils # (A) 0.1 k/uL (0-0.7); Eosinophils % (A) 2 %; HCT 50.1 % (39.0-53.0); HGB 17.3 gm/dL (13.0-17.5); Lymphocytes # (A) 1.5 k/uL (1.0-4.8); Lymphocytes % (A) 27 %; MCH 33.9 pg (25.0-35.0); MCHC 34.5 g/dL (31.0-37.0); MCV 98.4 fL (80.0-100.0); Mean Platelet Volume 7.3; Monocytes # (A) 0.6 k/uL (0-1.0); Monocytes % (A) 11 %; Neutrophils % (A) 56 %; Platelet Count 242 k/uL (150-450); RBC 5.09 m/uL (4.30-5.90); RDW 13.6 % (11.5-15.5); WBC 5.3 k/uL (3.8-10.6)
--- NOTE | 2020-10-30 21:50 | XR ---
EXAMINATION TYPE: XR chest 1V DATE OF EXAM: 10/30/2020 COMPARISON: 06/11/2018 HISTORY: Fall. TECHNIQUE: Single view FINDINGS: Heart and mediastinum are normal. Lungs are clear. Diaphragm is normal. Bony thorax is inta ct. IMPRESSION: Normal chest. No change.
--- NOTE | 2020-10-30 21:52 | XR ---
EXAMINATION TYPE: XR pelvis AP view DATE OF EXAM: 10/30/2020 COMPARISON: 06/11/2018 HISTORY: Fall. Pain. TECHNIQUE: Single view FINDINGS: Pelvic ring is intact. Proximal femurs and hip joints are intact. There is no hip dysplasia . Sacroiliac joints are intact. There is calcification adjacent to the lesser trochanter of the right femur consistent with an old injury. IMPRESSION: Negative exam. No fracture. No change.
[2020-10-30 21:55] LABS: ALT 20 U/L (4-49); AST 38 U/L (17-59); African American GFR (CKD) >90 (>60 ml/min/1.73 sqM); Albumin 5.1 g/dL (3.5-5.0); Alkaline Phosphatase 70 U/L (38-126); Anion Gap 13 mmol/L; Blood Urea Nitrogen 8 mg/dL (9-20); Calcium 9.6 mg/dL (8.4-10.2); Carbon Dioxide 25 mmol/L (22-30); Chloride 106 mmol/L (98-107); Creatine Kinase 159 U/L (55-170); Glucose 99 mg/dL (74-99); Magnesium 2.2 mg/dL (1.6-2.3); Non-African American GFR(CKD) 87 (>60 ml/min/1.73 sqM); Phosphorus 3.8 mg/dL (2.5-4.5); Potassium 4.3 mmol/L (3.5-5.1); Sodium 144 mmol/L (137-145); Total Bilirubin 0.5 mg/dL (0.2-1.3); Total Protein 8.3 g/dL (6.3-8.2)
[2020-10-30 21:56] LABS: INR 0.9 (<1.2); Partial Thromboplastin Time 23.6 sec (22.0-30.0); Prothrombin Time 9.8 sec (9.0-12.0)
[2020-10-30 22:05] LABS: Alcohol 420 mg/dL
[2020-10-30 22:06] LABS: Troponin I <0.012 ng/mL (0.000-0.034)
--- NOTE | 2020-10-30 22:47 | CT ---
EXAMINATION TYPE: CT brain kiranine wo con DATE OF EXAM: 10/30/2020 COMPARISON: None HISTORY: ETOH CT DLP: 1390 mGycm Automated exposure control for dose reduction was used. Images obtained of the brain and cervical spine without contrast. Ventricles and sulci appear normal. There is no mass effect nor midline shift. There is no sign of in tracranial hemorrhage. Calvarium is intact. There is some mucosal thickening in the maxillary sinuses . The skull base is intact. There is normal aeration of the mastoid sinuses. Cervical vertebra have normal alignment. Disc spaces are fairly normal. Posterior elements are intact . There is no compression fracture. Bony pelvis is intact. There is mild spurring of the endplates. T here is mild cervical hypertrophic facet arthropathy. IMPRESSION: Negative CT scan of the brain. Maxillary sinusitis. Mild ethmoid sinusitis. Mild degenerative spurring in the cervical spine. No fracture.
[2020-10-30] MEDS ORDERED: THIAMINE 100 MG/ML 2 ML VIAL IM STA (23:00)
[2020-10-30] MEDS ORDERED: ONDANSETRON 4 MG/2 ML VIAL IVP PRN (23:00)
[2020-10-30] MEDS ORDERED: NALOXONE 0.4 MG/ML 1 ML VIAL IV PRN (23:00)
[2020-10-30] MEDS ORDERED: MORPHINE SULFATE 4 MG/ML SYRINGE IV PRN (23:00)
[2020-10-30] MEDS ORDERED: LORazepam 2 MG/ML INJ IV PRN ×3 (23:00)
[2020-10-30] MEDS: SODIUM CHLORIDE 0.9% 1,000 ML IV SCH ×2 (23:07→23:08)
[2020-10-31 06:45] LABS: Basophils % (A) 1 %; Eosinophils # (A) 0.1 k/uL (0-0.7); Eosinophils % (A) 3 %; HCT 47.2 % (39.0-53.0); HGB 15.6 gm/dL (13.0-17.5); Lymphocytes # (A) 1.4 k/uL (1.0-4.8); Lymphocytes % (A) 38 %; MCH 33.2 pg (25.0-35.0); MCV 100.7 fL (80.0-100.0); Macrocytosis Slight; Mean Platelet Volume 7.8; Monocytes # (A) 0.4 k/uL (0-1.0); Monocytes % (A) 10 %; Neutrophils # (A) 1.7 k/uL (1.3-7.7); Neutrophils % (A) 45 %; Platelet Count 243 k/uL (150-450); RBC 4.69 m/uL (4.30-5.90); RDW 13.8 % (11.5-15.5); WBC 3.8 k/uL (3.8-10.6)
[2020-10-31 06:59] LABS: African American GFR (CKD) >90 (>60 ml/min/1.73 sqM); Blood Urea Nitrogen 7 mg/dL (9-20); Carbon Dioxide 25 mmol/L (22-30); Glucose 86 mg/dL (74-99); Non-African American GFR(CKD) >90 (>60 ml/min/1.73 sqM); Total Protein 7.1 g/dL (6.3-8.2)
[2020-10-31 07:00] LABS: AST 35 U/L (17-59); Albumin 4.1 g/dL (3.5-5.0); Alkaline Phosphatase 54 U/L (38-126); Total Bilirubin 0.4 mg/dL (0.2-1.3)
[2020-10-31 07:13] LABS: ALT 17 U/L (4-49); Anion Gap 9 mmol/L; Calcium 8.6 mg/dL (8.4-10.2); Chloride 113 mmol/L (98-107); Magnesium 1.9 mg/dL (1.6-2.3); Potassium 4.3 mmol/L (3.5-5.1); Sodium 147 mmol/L (137-145)
[2020-10-31] MEDS ORDERED: THIAMINE 100 MG TAB PO SCH (07:30)
[2020-10-31 08:20] VITALS: BP 150/97; PULSE 82; RESP 16; TEMP 97.5
[2020-10-31] MEDS: SODIUM CHLORIDE 0.9% 1,000 ML IV SCH (10:05)
== END 2020-10-31 13:51 | disposition home or self-care (01) ==
LOC: EC 21:21 → 6NMEDSUR 23:00
PROVIDERS: ADMIT Family Medicine; ATTEND Family Medicine
DX: F10.229 Alcohol dependence with intoxication, unspecified (principal); F10.239 Alcohol dependence with withdrawal, unspecified; F17.200 Nicotine dependence, unspecified, uncomplicated; S09.90XA Unspecified injury of head, initial encounter; W18.30XA Fall on same level, unspecified, initial encounter; Z79.01 Long term (current) use of anticoagulants; Z86.711 Personal history of pulmonary embolism; Z91.81 History of falling
CPT/HCPCS: 99285; 96372; 96360; 36415; 94760; 93005; 83880; 80053 ×2; 82550; 82553; 83605; 83735 ×2; 84100 ×2; 84484; 85025 ×2; 85610; 85730; 72170; 71045; 72125; 70450; G0378 ×2; G0480; J3411; 80320

== ENCOUNTER 2021-03-13 15:41 | Emergency (ER) | payer MEDICARE, OTHER ==
[2021-03-13 17:29] VITALS: BP 162/102; PULSE 105; RESP 18; TEMP 97.4
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
== END 2021-03-13 19:02 | disposition home or self-care (01) ==
LOC: EC 15:41
DX: F10.129 Alcohol abuse with intoxication, unspecified (principal); K21.9 Gastro-esophageal reflux disease without esophagitis; F41.9 Anxiety disorder, unspecified; F17.200 Nicotine dependence, unspecified, uncomplicated; F12.90 Cannabis use, unspecified, uncomplicated; Z86.711 Personal history of pulmonary embolism; Z86.718 Personal history of other venous thrombosis and embolism; Z79.01 Long term (current) use of anticoagulants; Z79.899 Other long term (current) drug therapy; Y90.9 Presence of alcohol in blood, level not specified
CPT/HCPCS: 99284

== ENCOUNTER → 2021-10-25 | Outpatient (CLI) | payer MEDICARE, OTHER ==
--- NOTE | 2021-10-25 10:02 | US ---
EXAMINATION TYPE: US venous doppler duplex LE LT DATE OF EXAM: 10/25/2021 9:09 AM COMPARISON: 10/09/2020 CLINICAL HISTORY: 56-year-old male I82.5Z9 CHR EMBLSM AND THOMBOS. Known chronic DVT. On blood thinn ers. SIDE PERFORMED: Left TECHNIQUE: The lower extremity deep venous system is examined utilizing real time linear array sonog christelle with graded compression, doppler sonography and color-flow sonography. FINDINGS: VESSELS IMAGED: Common Femoral Vein Deep Femoral Vein Greater Saphenous Vein * Femoral Vein Popliteal Vein Small Saphenous Vein * Proximal Calf Veins (* superficial vessels) Left Leg: Positive for DVT from CFV to Proximal calf veins. Patent collaterals seen. IMPRESSION: Similar chronic DVT left lower extremity with thready flow from the common femoral vein down to the u pper calf veins.
== END | disposition home or self-care (01) ==
LOC: RADUSWWP 08:41
PROVIDERS: ATTEND Internal Medicine Hematology & Oncology
DX: I82.512 Chronic embolism and thrombosis of left femoral vein (principal)

== ENCOUNTER 2023-01-29 13:42 | Emergency (ER) | payer MEDICARE, OTHER ==
[2023-01-29 13:55] VITALS: RESP 18; TEMP 97.4
--- NOTE | 2023-01-29 15:24 | US ---
EXAMINATION TYPE: US venous doppler duplex LE LT DATE OF EXAM: 01/29/2023 3:09 PM COMPARISON: Left lower extremity venous ultrasound 10/25/2021 CLINICAL INDICATION: Male, 58 years old with history of pain; Edema left leg, history of DVT left leg , patient on blood thinner for 3-4 years SIDE PERFORMED: left TECHNIQUE: The lower extremity deep venous system is examined utilizing real time linear array sonog christelle with graded compression, doppler sonography and color-flow sonography. VESSELS IMAGED: Common Femoral Vein Deep Femoral Vein Greater Saphenous Vein * Femoral Vein Popliteal Vein Small Saphenous Vein * Proximal Calf Veins (* superficial vessels) Left Leg: Positive for DVT. Thready flow with partial compression left CFV extending into popliteal vein IMPRESSION: Chronic positive deep venous thrombosis involving the left common femoral vein extending into the pop liteal vein thready flow and partial compressibility.
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
[2023-01-29 16:45] VITALS: BP 152/98; PULSE 94
== END 2023-01-29 16:27 | disposition home or self-care (01) ==
LOC: EC 13:42
DX: I82.512 Chronic embolism and thrombosis of left femoral vein (principal); I82.539 Chronic embolism and thrombosis of unspecified popliteal vein; K21.9 Gastro-esophageal reflux disease without esophagitis; F41.9 Anxiety disorder, unspecified; F17.200 Nicotine dependence, unspecified, uncomplicated; F12.90 Cannabis use, unspecified, uncomplicated; Z88.8 Allergy status to other drugs, medicaments and biological substances; Z88.5 Allergy status to narcotic agent; Z79.01 Long term (current) use of anticoagulants; Z79.899 Other long term (current) drug therapy
CPT/HCPCS: 99283

== ENCOUNTER → 2024-06-22 | Outpatient (CLI) | payer MEDICARE, OTHER ==
--- NOTE | 2024-06-22 16:14 | CTL ---
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 TECHNIQUE: Low dose computed tomography scan was performed through the chest at 1 mm thick sections a nd reconstructed images in multiple planes at 1 mm and [address] DLP: 104.[address] CTDI: 2.7 mGy Automated exposure control for dose reduction was used. 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 Comparison: None TECHNIQUE: Low dose computed tomography scan was performed through the chest at 1 mm thick sections a nd reconstructed images in multiple planes at 1 mm and [address] DIAGNOSTIC QUALITY: Satisfactory FINDINGS: There is no suspicious lung mass or nodule The lungs are clear and there is no abnormal airspace consolidation or interstitial density. There is no mediastinal, hilar or axillary adenopathy. There is 4.2 cm dilatation of the ascending thoracic aorta. There is no pleural effusion, pleural thickening or pneumothorax. No focal osseous lesions are seen. Limited scans the upper abdomen reveals no gross abnormality IMPRESSION: 1. Lung rads Category 1 negative. Continue routine screening at yearly intervals. 2. No acute cardiopulmonary disease. 3. 4.2 cm dilatation of the ascending thoracic aorta. [facility], , 06/22/2024 4:12 PM
== END | disposition home or self-care (01) ==
LOC: RADCTMAIN 15:29
PROVIDERS: ATTEND Family Medicine
DX: Z12.2 Encounter for screening for malignant neoplasm of respiratory organs (principal); F17.210 Nicotine dependence, cigarettes, uncomplicated; I77.810 Thoracic aortic ectasia
CPT/HCPCS: 71271